=== PATIENT | female | born 1950 | race Caucasian/White ===

== ENCOUNTER 2021-05-13 12:50 | Outpatient (REF) | payer MEDICARE, OTHER, SELFPAY ==
--- NOTE | ~2021-05-13 | MR_ITS ---
EXAMINATION: MR LUMBAR SPINE WITHOUT CONTRAST CLINICAL INFORMATION: Chronic right-sided low back pain without sciatica. COMPARISON: Lumbar spine MRI 04/02/2011. TECHNIQUE: MRI of the lumbar spine was obtained using routine sequences without contrast. FINDINGS: The lumbar vertebral bodies maintain normal heights. There is mild retrolisthesis of L3 on L4 and grade 1 anterolisthesis of L5 on S1. Disc height loss is moderate at L3-L4 and L4-L5. Mild amount of endplate edema is seen at the L3-L4 level. The distal spinal cord appears normal. The conus medullaris terminates normally at the L1 level. The visualized paraspinal muscles and intra-abdominal and pelvic contents are within normal limits. SPINAL LEVELS: L1-L2: New small right subarticular extrusion superior migration. No definite traversing nerve root compression. No spinal canal stenosis. No neural foraminal stenosis. L2-L3: Disc bulging. No spinal canal stenosis. Minimal narrowing of the neural foramina. L3-L4: Disc bulging with central protrusion. Ligamentum flavum infolding mild facet arthropathy. Mild spinal canal stenosis with narrowing of the subarticular zones, new from prior. Mild bilateral neural foraminal stenosis. L4-L5: Disc bulging with ligamentum flavum infolding and severe facet arthropathy. Moderate spinal canal stenosis and bilateral subarticular stenosis with compression of the traversing L5 nerve roots. Right foraminal protrusion results in moderate compression of the exiting right L4 nerve root. Findings have progressed compared with prior. L5-S1: New grade 1 anterolisthesis with disc bulging and severe facet arthropathy resulting in bilateral subarticular stenosis. Abutment of the exiting right L5 nerve root. MR/MR lumbar spine wo con IMPRESSION: At L4-L5 there is moderate spinal canal stenosis with bilateral subarticular stenosis and compression of the traversing L5 nerve roots. Moderate compression of the exiting right L4 nerve root related to foraminal protrusion. Additional milder spondylotic changes are further detailed above and appear progressive compared with prior.
== END 2021-05-13 12:51 | disposition home or self-care (01) ==
LOC: HO.MRI 12:50
PROVIDERS: PCP Internal Medicine; Visit Provider Internal Medicine
DX: M54.50 Low back pain, unspecified (principal); G89.29 Other chronic pain
CPT/HCPCS: 72148

== ENCOUNTER 2021-07-23 13:00 | Outpatient (RCR) | payer MEDICARE, OTHER, SELFPAY | END 2021-08-28 14:37 | disposition home or self-care (01) | LOC: HO.PT 13:00 | PROVIDERS: PCP Internal Medicine; Visit Provider Nurse Practitioner Adult Health | DX: N81.11 Cystocele, midline (principal) | CPT/HCPCS: 97110; 97112; 97162; 97530 ==

== ENCOUNTER 2021-11-07 06:26 | Outpatient (REF) | payer MEDICARE, OTHER, SELFPAY ==
--- NOTE | ~2021-11-07 | XR_ITS ---
EXAMINATION: XR [id number] VIEW XR [id number] VIEWS CLINICAL INFORMATION: Pain in unspecified knee. Pain right knee. COMPARISON: None TECHNIQUE: Upright frontal view of both knees and lateral and patellofemoral views of the right knee were obtained. FINDINGS: Right knee: 3 views of the right knee shows asymmetric decreased joint space at the medial compartment consistent with mild osteoarthrosis. Enthesopathy is noted at the insertional site of the quadriceps tendon to the superior pole of the patella. Mild osteoarthrosis of the patellofemoral joint as well. No evidence of any joint effusion. Soft tissues are unremarkable. Left knee: Single frontal view of the left knee in upright position shows mild asymmetric decreased joint space at the medial compartment, consistent with mild osteoarthrosis. Subtle focal area of sclerosis is seen projecting over the distal shaft of the left femur, not optimally localized on this single frontal projection. XR/XR knee RT 2V IMPRESSION: 1. Mild right knee osteoarthrosis involving the medial and the patellofemoral compartments 2. Enthesopathy at the insertional site of the quadriceps tendon to the superior pole of the patella. 3. Mild osteoarthrosis of the medial compartment of the left knee. 4. Subtle focal area of sclerosis seen projecting over the distal shaft of the left femur, not optimally localized on this single frontal projection.
--- NOTE | ~2021-11-07 | XR_ITS ---
EXAMINATION: XR [id number] VIEW XR [id number] VIEWS CLINICAL INFORMATION: Pain in unspecified knee. Pain right knee. COMPARISON: None TECHNIQUE: Upright frontal view of both knees and lateral and patellofemoral views of the right knee were obtained. FINDINGS: Right knee: 3 views of the right knee shows asymmetric decreased joint space at the medial compartment consistent with mild osteoarthrosis. Enthesopathy is noted at the insertional site of the quadriceps tendon to the superior pole of the patella. Mild osteoarthrosis of the patellofemoral joint as well. No evidence of any joint effusion. Soft tissues are unremarkable. Left knee: Single frontal view of the left knee in upright position shows mild asymmetric decreased joint space at the medial compartment, consistent with mild osteoarthrosis. Subtle focal area of sclerosis is seen projecting over the distal shaft of the left femur, not optimally localized on this single frontal projection. XR/XR knee standing BI IMPRESSION: 1. Mild right knee osteoarthrosis involving the medial and the patellofemoral compartments 2. Enthesopathy at the insertional site of the quadriceps tendon to the superior pole of the patella. 3. Mild osteoarthrosis of the medial compartment of the left knee. 4. Subtle focal area of sclerosis seen projecting over the distal shaft of the left femur, not optimally localized on this single frontal projection.
== END 2021-11-07 06:27 | disposition home or self-care (01) ==
LOC: HO.HOSX 06:26
PROVIDERS: Visit Provider Physician Assistant
DX: M17.11 Unilateral primary osteoarthritis, right knee (principal); M25.562 Pain in left knee
CPT/HCPCS: 73560; 73565; 99202

== ENCOUNTER 2022-04-03 07:25 | Outpatient (REF) | payer MEDICARE, OTHER, SELFPAY ==
--- NOTE | ~2022-04-03 | CT_ITS ---
EXAMINATION: CT ABDOMEN AND PELVIS WITH CONTRAST CLINICAL INFORMATION: Right-sided abdominal pain COMPARISON: Previous pelvic ultrasound January [address] of the abdomen and pelvis September 1999 and TECHNIQUE: Multidetector volumetric images were obtained from the superior aspect of the liver through the pubic symphysis following administration 85 mL of Omnipaque 350 intravenous contrast. Sagittal and coronal reformatted images were obtained on the technologist's workstation. Oral contrast: Yes This CT examination was performed using dose optimization techniques as appropriate, variously including the following: *Automated exposure control *Adjustment of mA and/or kV according to patient size (this includes techniques or standardized protocols for targeted exams where dose is matched to indication/reason for exam; i.e. extremities or head) *Use of iterative reconstruction technique DLP: 241 mGy-cm FINDINGS: LUNG BASES: There is a 5 mm nodule in the lateral right lower lobe costophrenic sulcus that is stable. The lung bases are otherwise clear. LIVER, GALLBLADDER, AND BILIARY TREE: The liver is normal in size, shape, and attenuation. There is a 1.2 x 1.8 cm low-attenuation lesion in the peripheral medial segment of the left lobe of the liver axial image 21 series 3 and smaller 5 mm lesion axial image 17 series 3 suggestive of cysts. There are several other smaller liver lesions difficult characterize due to small size but may represent cysts as well, largest in the posterior segment of the right lobe axial image 20 series 3. No biliary duct dilatation. The gallbladder is unremarkable with no evidence of radiopaque gallstones, gallbladder wall thickening, or obvious pericholecystic inflammatory changes. PANCREAS: Unremarkable. SPLEEN: Unremarkable. ADRENAL GLANDS: Unremarkable. KIDNEYS AND URETERS: Small 8 mm low-attenuation lesion in the lower pole the right kidney probably representing a cyst. These are otherwise unremarkable. No imaging follow-up needed. BLADDER: Unremarkable. GASTROINTESTINAL TRACT: There is stool throughout the colon suggestive of constipation. Small and large bowel is otherwise normal. The appendix is not well visualized. No inflammatory changes in the right lower quadrant. ABDOMINAL WALL: No significant hernia is appreciated. LYMPH NODES: Normal. VASCULAR: Unremarkable. PELVIC VISCERA: Prominent pelvic vessels questionable for pelvic congestion. Uterus and adnexa are otherwise unremarkable. OSSEOUS STRUCTURES: Degenerative changes of the spine. CT/CT abdomen pelvis w IV con IMPRESSION: Constipation. Liver and right renal cysts. Fleischner guidelines were followed.
[2022-04-03] MEDS: iohexoL 350 MG/ML 100 ML INFUS..BTL IV (10:44)
[2022-04-04 08:35] LABS: Creatinine POC 0.6 mg/dL (0.5-1.4); GFR POC > 60
== END 2022-04-03 07:26 | disposition home or self-care (01) ==
LOC: HO.CT 07:25
PROVIDERS: Visit Provider Internal Medicine Gastroenterology
DX: R10.33 Periumbilical pain (principal)
CPT/HCPCS: 74177; 82565; Q9967

== ENCOUNTER 2023-08-21 10:14 | Outpatient (REF) | payer MEDICARE, OTHER, SELFPAY ==
--- NOTE | ~2023-08-21 | MR_ITS ---
EXAMINATION: MR LUMBAR SPINE WITHOUT CONTRAST CLINICAL INFORMATION: Spinal stenosis COMPARISON: MRI lumbar spine on 05/13/2021 TECHNIQUE: MRI of the lumbar spine was obtained using routine sequences without contrast. FINDINGS: The visualized lumbar vertebrae are intact. No focal bone lesion with abnormal signal can be seen. Evaluation of the intervertebral discs show: T12/L1: Intervertebral disc height is normal, with normal T2 signal. No focal disc herniation is seen. Bilateral T12/L1 neuroforamina are patent. Bilateral apophyseal joints are intact with normal alignment. L-1/L-2: Intervertebral disc height is normal, with normal T2 signal. No focal disc herniation is seen. Bilateral L1-L2 neuroforamina are patent. Bilateral apophyseal joints are intact with normal alignment. L2/L3: Intervertebral disc height is moderately decreased, with moderate loss of T2 signal. Mild broad-based disc bulge is seen. Bilateral L2-L3 neuroforamina are patent. Bilateral apophyseal joints are intact with normal alignment. L3/L4: Intervertebral disc height is markedly decreased, with mild loss of T2 signal. Mild posterior and bilateral foraminal disc protrusion is seen. Bilateral L3-L4 neuroforamina are mildly stenosed, unchanged. Bandlike T2 hyperintensity is seen at L3-L4 vertebral endplates. There is persistent mild spinal stenosis due to impingement by hypertrophic ligamentum flavum. Bilateral apophyseal joints are intact with normal alignment. Bilateral apophyseal joints show loss of joint space, sclerosis, facet hypertrophy and osteophytosis. L4/L5: There is anterior L4 on L5 displacement by 0.3 cm. No pars interarticulares bony defect could be seen with Intervertebral disc height is markedly decreased, with mild loss of T2 signal. Mild posterior and bilateral foraminal disc protrusion is seen. There is unchanged moderate asymmetric right L4-L5 neuroforaminal stenosis due to impingement by foraminal disc protrusion and apophyseal osteophyte. There is persistent moderate spinal stenosis due to impingement by hypertrophic ligamentum flavum. Bilateral apophyseal joints are intact with normal alignment. Bilateral apophyseal joints show loss of joint space, sclerosis, facet hypertrophy and osteophytosis. L5/S1: Intervertebral disc height is normal, with mild loss of T2 signal. Mild broad-based disc bulge is seen. Bilateral L5-S1 neuroforamina are patent. Bilateral apophyseal joints are intact with normal alignment. Bilateral apophyseal joints show loss of joint space, sclerosis, facet hypertrophy and osteophytosis. Conus medullaris is seen normally at L1 level. MR/MR lumbar spine wo con IMPRESSION: 1. Unchanged moderate L4-L5 and mild L3-L4 spinal stenosis due to impingement by hypertrophic ligamentum flavum. 2. Unchanged moderate asymmetric right L4-L5 neuroforaminal stenosis due to impingement by foraminal disc protrusion and apophyseal osteophyte. 3. Unchanged mild L3-L4 bilateral neuroforaminal stenosis due to impingement by foraminal disc protrusion. 4. Unchanged grade 1 L4-L5 spondylolisthesis without spondylolysis. 5. Interval increase in L3-L4 Modic type I degenerative vertebral endplate changes. 6. Unchanged bilateral L3-L4 to L5-S1 apophyseal joint osteoarthritis.
== END 2023-08-21 10:15 | disposition home or self-care (01) ==
LOC: HO.MRI 10:14
PROVIDERS: PCP Internal Medicine; Visit Provider Internal Medicine
DX: M48.061 Spinal stenosis, lumbar region without neurogenic claudication (principal)
CPT/HCPCS: 72148

== ENCOUNTER 2024-01-15 07:49 | Outpatient (REF) | payer MEDICARE, OTHER, SELFPAY ==
--- NOTE | ~2024-01-15 | US_ITS ---
EXAMINATION: US ABDOMEN COMPLETE CLINICAL INFORMATION: Abdominal pain. COMPARISON: CT scan of abdomen and pelvis on 04/03/2022 TECHNIQUE: Real-time imaging of the abdominal viscera. FINDINGS: PANCREAS: Normal. ABDOMINAL AORTA: The proximal, mid, and distal segments are normal in caliber. INFERIOR VENA CAVA: Visualized portions are normal. LIVER: The liver is normal in size. The liver contour is normal. Parenchymal echogenicity is normal. A simple cyst is seen in anterior subcapsular left hepatic lobe segment 4B measuring 2.1 x 1.4 x 2.3 cm (previously 1.2 x 1.[address] scan). There is no intrahepatic biliary duct dilatation seen. GALLBLADDER: Normal. The gallbladder is physiologically distended without evidence of stones, sludge, polyps, wall thickening or pericholecystic fluid. COMMON BILE DUCT: Normal in caliber measuring 0.31 cm in diameter. RIGHT KIDNEY: Normal. No hydronephrosis. No renal calculi or focal parenchymal lesions. The kidney measures 9.5 cm in maximum dimension. LEFT KIDNEY: Normal. There is persistent mild prominence of left renal pelvis. No hydronephrosis. No renal calculi or focal parenchymal lesions. The kidney measures 10.0 cm in maximum dimension. SPLEEN: Normal. The spleen measures 8.6 cm in maximum dimension. FREE FLUID: None. US/US abdomen complete IMPRESSION: 1. Stable Simple cyst in anterior subcapsular left hepatic lobe segment 4B. 2. Persistent mild prominence of left renal pelvis. 3. Otherwise unremarkable examination. Electronically signed by: Ivan Clark MD 02/29/2024 10:33 AM EDT
== END 2024-01-15 07:50 | disposition home or self-care (01) ==
LOC: HO.US 07:49
PROVIDERS: PCP Internal Medicine; Visit Provider Internal Medicine Gastroenterology
DX: R10.84 Generalized abdominal pain (principal)
CPT/HCPCS: 76700

== ENCOUNTER 2024-03-04 07:46 | Day surgery (SDC) | payer MEDICARE, OTHER, SELFPAY ==
[2024-03-02 16:33] VITALS: BMI 18.8
[2024-03-04 07:59] VITALS: BP 147/88; PULSE 82; RESP 20; TEMP 36.3; O2SAT 99; BMI 18.5
--- NOTE | 2024-03-04 08:15 | P.CONAN_ITS ---
Documented by User: Leanna Adair NP 03/03/24 09:34 HPI - Anesthesia Eval Consult details Narrative: 73yo F for Upper Endoscopy and Colonoscopy PMFSH Active Problems Active Problems: All Active Problems Osteoarthritis of right knee (Acute) Past Medical History Medical History (Updated 03/02/24 @ 16:33 by Esperanza Carrion, MICHAEL) History of trigeminal neuralgia Arthritis Pinched nerve Surgical History Surgical History (Updated 03/02/24 @ 16:33 by Esperanza Carrion RN) History of esophagogastroduodenoscopy (EGD) Hx of colonoscopy H/O section Social History Social History (Updated 11/07/21 @ 11:31 by DELORES Carbone) Patient Tobacco Use Status: Never used Tobacco Have you been hit, kicked, punched, or otherwise hurt by someone within the past year? If so, by whom?: No Are you DNR?: No Advance Directives: No Advance Directives Information Provided: Yes Current occupational status: retired Current occupation: rt hand Meds Allergies Allergy/AdvReac Type Severity Reaction Status Date / Time erythromycin base Allergy Intermediate STOMACH Verified 03/04/24 08:13 [Erythromycin Base] UPSET nitrofurantoin Allergy Intermediate RASH Verified 03/04/24 08:13 [From MACRODANTIN] sulfamethoxazole Allergy Intermediate HIVES Verified 03/04/24 08:13 [From Bactrim] trimethoprim [From Bactrim] Allergy Intermediate HIVES Verified 03/04/24 08:13 ENVIRONMENTAL Allergy Intermediate ITCHY Uncoded 11/07/21 11:37 EYES,ETC. Home Medications ?Medication ?Instructions ?Recorded ?Confirmed ?Last Taken ?Type amoxicillin 875 mg-potassium 1 tab PO BID 11/07/21 Unknown History clavulanate 125 mg tablet aloe vera cap PO 03/02/24 03/02/24 Unknown History doxycycline hyclate 20 mg tablet 20 mg PO QWEEK 03/02/24 03/02/24 Unknown History estradiol 1 mg tablet (Estrace) 1 mg PO 03/02/24 Unknown History fexofenadine 180 mg tablet 180 mg PO DAILY 03/02/24 03/02/24 Unknown History magnesium PRN Cramps 03/02/24 03/02/24 Unknown History valacyclovir 500 mg tablet 500 mg PO BID PRN Cold Sores 03/02/24 03/02/24 Unknown History vit C 250 mg-vit E 90 mg-zinc 40 PO 03/02/24 03/02/24 Unknown History mg-copper 1 [id number] capsule (PreserVision AREDS-2) Exam Height,Weight and Vital Signs: Height 5 ft 3.5 in Weight 48.988 kg Assessment and Plan Assessment Anesthesia Assessment: Chart Reviewed Documented by User: Dominique Smith DO 03/04/24 08:17 [facility] Past Medical History Medical History (Updated 03/02/24 @ 16:33 by Esperanza Carrion RN) History of trigeminal neuralgia Arthritis Pinched nerve Family History Family history of problems with anesthesia: No Surgical History Surgical History (Updated 03/02/24 @ 16:33 by Esperanza Carrion RN) History of esophagogastroduodenoscopy (EGD) Hx of colonoscopy H/O section History of Problems with Anesthesia: No Social History Social History (Updated 11/07/21 @ 11:31 by DELORES Carbone) Patient Tobacco Use Status: Never used Tobacco Have you been hit, kicked, punched, or otherwise hurt by someone within the past year? If so, by whom?: No Are you DNR?: No Advance Directives: No Advance Directives Information Provided: Yes Current occupational status: retired Current occupation: rt hand Meds Allergies Allergy/AdvReac Type Severity Reaction Status Date / Time erythromycin base Allergy Intermediate STOMACH Verified 03/04/24 08:13 [Erythromycin Base] UPSET nitrofurantoin Allergy Intermediate RASH Verified 03/04/24 08:13 [From MACRODANTIN] sulfamethoxazole Allergy Intermediate HIVES Verified 03/04/24 08:13 [From Bactrim] trimethoprim [From Bactrim] Allergy Intermediate HIVES Verified 03/04/24 08:13 ENVIRONMENTAL Allergy Intermediate ITCHY Uncoded 11/07/21 11:37 EYES,ETC. Home Medications ?Medication ?Instructions ?Recorded ?Confirmed ?Last Taken ?Type amoxicillin 875 mg-potassium 1 tab PO BID 11/07/21 Unknown History clavulanate 125 mg tablet aloe vera cap PO 03/02/24 03/02/24 Unknown History doxycycline hyclate 20 mg tablet 20 mg PO QWEEK 03/02/24 03/02/24 Unknown History estradiol 1 mg tablet (Estrace) 1 mg PO 03/02/24 Unknown History fexofenadine 180 mg tablet 180 mg PO DAILY 03/02/24 03/02/24 Unknown History magnesium PRN Cramps 03/02/24 03/02/24 Unknown History valacyclovir 500 mg tablet 500 mg PO BID PRN Cold Sores 03/02/24 03/02/24 Unknown History vit C 250 mg-vit E 90 mg-zinc 40 PO 03/02/24 03/02/24 Unknown History mg-copper 1 [id number] capsule (PreserVision AREDS-2) Exam Exam Date and Time: 03/04/24 0815 Height,Weight and Vital Signs: Height 5 ft 3.5 in Weight 48.988 kg Vital Signs Temperature 97.4 F 03/04/24 07:59 Pulse Rate 82 03/04/24 07:59 Respiratory Rate 20 03/04/24 07:59 Blood Pressure 147/88 H 03/04/24 07:59 Pulse Oximetry 99 03/04/24 07:59 Oxygen Delivery Method Room Air 03/04/24 07:59 Temperature 97.4 F 03/04/24 07:59 Pulse Rate 82 03/04/24 07:59 Respiratory Rate 20 03/04/24 07:59 Blood Pressure 147/88 H 03/04/24 07:59 Pulse Oximetry 99 03/04/24 07:59 Oxygen Delivery Method Room Air 03/04/24 07:59 Airway Mallampati Class: I TM Dist: >3cm Neck ROM: Full Loose/Missing/Broken Teeth: No (patient denies any loose or broken teeth) Heart: S1S2 Lungs: CTAB Assessment and Plan Assessment Anesthesia Assessment: Anesthesia Plan Discussed and Chart Reviewed Final Anesthetic Review Family History of Problems with Anesthesia: No History of Problems with Anesthesia: No NPO: Yes ASA Class: I Final Preanesthetic Review: No Changes in Pt Med Stat, Meds/Allgs Chart Reviewed, Consent Obtained/Reviewed and Anes Risks/Benef Reviewed Patient Risk: Low Procedure Risk: Low Anesthetic Plan Anesthetic Plan: MAC: and Agree w/ Assess. and Plan Disposition: Standard PACU
[2024-03-04] MEDS: Lactated Ringers 1,000 ML 100 ML IVCONT (08:19)
--- NOTE | 2024-03-04 08:21 | MHC.SHP ---
Pre-Procedural Eval Section A - 24 Hr Update-Section A only Date of Service: 03/04/24 Section B - Complete if H&P > 30 days Chief Complaint: Other specified symptoms and signs involving the Details of Present Illness: see H&P no changes Relevant Family History (Specify if Yes): No Relevant Social History: None Present Medications: see Short Stay Collaborative assessment Medical History: No relevant PMH Allergies: Allergies Allergy/AdvReac Type Severity Reaction Status Date / Time erythromycin base Allergy Intermediate STOMACH Verified 03/04/24 08:13 [Erythromycin Base] UPSET nitrofurantoin Allergy Intermediate RASH Verified 03/04/24 08:13 [From MACRODANTIN] sulfamethoxazole Allergy Intermediate HIVES Verified 03/04/24 08:13 [From Bactrim] trimethoprim [From Bactrim] Allergy Intermediate HIVES Verified 03/04/24 08:13 ENVIRONMENTAL Allergy Intermediate ITCHY Uncoded 11/07/21 11:37 EYES,ETC. Review of Systems Sugical H&P ROS: Negative: Constitution, Cardiovascular, Respiratory, Neurological, Psychiatric, Hem-Onc, Allergic/Immunologic, Gastrointestinal, Genitourinary, Musculoskeletal, Integumentary, Endocrine and Eyes/Ears/Nose/Throat Exam Surgical H&P Exam: Normal: HEENT, Normal: Heart, Normal: Lungs, Normal: Extremities, Normal: Abdomen, Normal: Skin and Normal: Neurological Plan Diagnosis/Plan: Unchanged I have reviewed the history and physical and performed a pertinent physical examination on my patient. No changes have occurred unless specified. Time Spent With Patient Time: Total time managing care of this patient today ____ minutes.
[2024-03-04 09:08] VITALS: BP 90/40; PULSE 81; RESP 16; TEMP 36.6; O2SAT 94
[2024-03-04 09:13] VITALS: BP 104/72; PULSE 89; RESP 15; O2SAT 98
[2024-03-04 09:18] VITALS: BP 112/77; PULSE 80; RESP 15; O2SAT 98
[2024-03-04 09:23] VITALS: BP 112/68; PULSE 75; RESP 14; TEMP 36.6; O2SAT 98
--- NOTE | 2024-03-04 09:30 | OP_ITS ---
DATE OF SERVICE: 03/04/2024 SURGEON: Edwin Garza MD INDICATIONS: 1. Change in bowel movements. 2. Gastroesophageal reflux disease. 3. Abdominal pain. PREOPERATIVE DIAGNOSIS: POSTOPERATIVE DIAGNOSIS: PROCEDURE PERFORMED: 1. Upper endoscopy with biopsy. 2. Colonoscopy to the terminal ileum with biopsy. ESTIMATED BLOOD LOSS: COMPLICATIONS: ANESTHESIA: Monitored anesthesia care. ASSISTANTS: SPECIMENS: DESCRIPTION OF PROCEDURE: A history and physical was performed. The risks and benefits of the procedure were explained to the patient and informed consent was obtained. The patient was placed in the left lateral decubitus position. The Olympus video gastroscope was introduced into the esophagus, stomach, and duodenum. Examination was performed and the scope was removed. She tolerated the procedure well and was repositioned for colonoscopy. A digital rectal exam was performed and was found to be normal. The Olympus pediatric video colonoscope was introduced into the rectum and advanced to the cecum. The cecum was identified by transillumination, palpation, and identification of ileocecal valve. Examination was performed and the scope was removed. She tolerated both procedures well and was returned to recovery area in stable condition. FINDINGS: Upper endoscopy, esophagus: The esophagus showed some white patches suggestive of possible underlying candidiasis. Biopsies were obtained from the EG junction, which was irregular. 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 No stricture was identified at the upper or lower esophageal sphincter. Stomach: The stomach showed some polyps consistent with fundic gland polyps that were benign. Biopsies were obtained from the antrum. There were linear streaks of erythema consistent with possible gastritis. Biopsies were obtained to evaluate for H pylori. Duodenum: The bulb and 2nd portion were normal. Colonoscopy: The terminal ileum was examined and appeared normal. The visualized colonic mucosa was normal. The quality of the prep was good. A single polyp in the cecum measuring less than 5 mm was removed with the biopsy forceps. Random sigmoid biopsies were obtained because of the patient's symptoms of diarrhea. Retroflexed examination showed some small internal hemorrhoids. IMPRESSION: 1. Gastritis. 2. Gastroesophageal reflux disease. 3. Colon polyp. RECOMMENDATION: Follow up the biopsy results. MD LAZARO Ruiz/JULIETA / [id number]
[2024-03-04 09:38] VITALS: BP 118/69; PULSE 76; RESP 16; TEMP 36.6; O2SAT 98
== END 2024-03-04 10:10 | disposition home or self-care (01) ==
PROVIDERS: PCP Internal Medicine; Visit Provider Internal Medicine Gastroenterology
PROC: (CPT 43239; principal; 2024-03-04 09:20)
DX: K31.7 Polyp of stomach and duodenum (principal); K22.89 Other specified disease of esophagus; K29.00 Acute gastritis without bleeding; K22.70 Barrett's esophagus without dysplasia; K21.00 Gastro-esophageal reflux disease with esophagitis, without bleeding; D12.0 Benign neoplasm of cecum; K64.8 Other hemorrhoids; R19.4 Change in bowel habit
CPT/HCPCS: 43239; 45380; 88305; 88342; J2250; J2704

== ENCOUNTER 2025-03-28 12:01 | Outpatient (REF) | payer MEDICARE, OTHER, SELFPAY ==
[2025-03-28 12:52] LABS: Hematocrit 41.7 % (37.0-47.0); Hemoglobin 13.5 g/dl (12.0-16.0); Mean Corpuscular HGB Conc 32.4 g/dl (31.0-35.0); Mean Corpuscular Hemoglobin 30.0 pg (27.0-33.0); Mean Corpuscular Volume 92.7 fL (80.0-98.0); NRBC Abs Auto 0.000 X10*3/uL (0.0-0.012); NRBC Pct Auto 0.0 /100WBC (0.0-0.2); Platelet Count 215 X10*3/uL (160-400); Red Blood Count 4.50 X10*6/uL (4.20-5.50); White Blood Count 4.9 X10*3/uL (4.8-10.8)
[2025-03-28 13:37] LABS: Alanine Aminotransferase 36 U/L (0-31); Albumin Level 4.6 g/dL (3.5-5.0); Alkaline Phosphatase 93 U/L (39-117); Aspartate Amino Transferase 41 U/L (5-31); Lipase 38 U/L (8-78); Total Protein 7.2 g/dL (6.5-8.0)
--- OUTSIDE RECORDS SUMMARY | 2025-03-28 15:32 | XMS_ITS | Encounter Summary ---
Author Organization [facility] Address [address] [place] [address] [place] [address] Phone Care Team Providers Care District Agent Name Role Phone Vaughn Dukes MD Primary Care Provider [phone] Vaughn Dukes MD Unavailable [phone] Thomas Saunders MD Unavailable [phone] Charlene Morris MD Unavailable [phone] Dustin Perla MD Unavailable [phone] Christiane Michele HEEL SPRAYER Unavailable +[phone] Ambar Sosa HEEL SPRAYER Unavailable [phone] Grupo Lundberg MD Unavailable [phone] Vaughn Dukes MD Unavailable [phone] Vaughn Dukes MD Primary Care Provider [phone] Jey Doll MD Unavailable Encounter Details Date Type Department Care Team (Late st Contact Info) Description 05/24/2019 Procedure Pass [facility] Periop [address] [place] [address] Social History Tobacco Use Types Packs/Day Years Used Date Smoking Tobacco: Former Cigarettes 0.3 14 1 964 - 1977 Smokeless Tobacco: Never Alcohol Use Standard Drinks/Week Comments Yes 0 (1 standard drink = 0.6 oz pur e alcohol) 2 x year Comments Unknown Sex and Gender Information Value Date Recorded Sex Assigned at Female 11/05/2020 9:53 AM EDT Legal Sex Female 2:08 PM EDT Gender Identity Female 12/17/2021 8:06 AM EDT Sexual Orientation Straight 12/17/2021 8: 06 AM EDT documented as of this encounter Plan of Treatment Upcoming Encounters Date Type Department Care Team (Late st Contact Info) Description 05/26/2025 3:00 PM EST Office Visit [facility] Internal Medicine [address] [place] [address] Vaughn Dukes MD [address] [place] [address] [email or web address] documented as of this encounter Visit Diagnoses Not on filedocumented in this encounter Care Teams District Agent Relationship Specialty Start Date End Date Vaughn Dukes MD [address] [place] [address] PCP - General 08/10/15 08/01/20 Vaughn Dukes MD [address] [place] [address] PCP - General Internal Medicine 08/02/20 Vaughn Dukes MD [address] [place] [address] Historical LMR Provider 03/29/17 09/17/22 Thomas Saunders MD [address] [place] [address] [email or web address] Historical LMR Provider 03/29/17 06/15/21 Charlene Morris MD [address] [place] [address] Historical LMR Provider 03/29/17 2 Dustin Perla MD [address] [facility], [address] [place] [address] Historical LMR Provider 03/29/17 06/15/21 Christiane Michele, HEEL SPRAYER [address] [place] [address] [address] [place] [address] Historical LMR Provider 03/29/17 2 Ambar Sosa NP [address] [place] [address] Historical LMR Provider 03/29/17 09/17/22 Grupo Lundberg MD [address] [place] [address] Historical LMR Provider 03/29/17 Vaughn Dukes MD [address] [place] [address] Insurance Assigned Provider 09/12/23 Jey Doll MD [address] [address] Ophthalmology 09/18/22 documented as of this encounter Additional Source Comments The information contained in this document represents components of the legal health record. It is not the complete legal health record.[facility]
--- OUTSIDE RECORDS SUMMARY | 2025-03-28 15:34 | XMS_ITS | Encounter Summary ---
Author Organization [facility] Address [address] [place] [address] [place] [address] Phone Care Team Providers Care Surgical Technology Instructor Name Role Phone Vaughn Dukes MD Primary Care Provider [phone] Vaughn Dukes MD Unavailable [phone] Thomas Saunders MD Unavailable [phone] Charlene Morris MD Unavailable [phone] Dustin Perla MD Unavailable [phone] Christiane Michele CARPENTER Unavailable Ambar Sosa CARPENTER Unavailable [phone] Grupo Lundberg MD Unavailable [phone] Vaughn Dukes MD Unavailable [phone] Vaughn Dukes MD Primary Care Provider [phone] Jey Doll MD Unavailable Encounter Details Date Type Department Care Team (Late st Contact Info) Description 12/06/2019 Documentation [facility] Department of Neurosurgery [address] [place] [address] May Figueroa RN [address] [place] [id number] [email or web address] Social History Tobacco Use Types Packs/Day Years Used Date Smoking Tobacco: Former Cigarettes 0.3 14 1 975 - 1988 Smokeless Tobacco: Never Alcohol Use Standard Drinks/Week Comments Yes 0 (1 standard drink = 0.6 oz pur e alcohol) 1-2 x month, gin and tonic Comments No Sex and Gender Information Value Date Recorded Sex Assigned at Female 11/05/2020 9:53 AM EDT Legal Sex Female 2:08 PM EDT Gender Identity Female 12/17/2021 8:06 AM EDT Sexual Orientation Straight 12/17/2021 8: 06 AM EDT documented as of this encounter Plan of Treatment Upcoming Encounters Date Type Department Care Team (Late st Contact Info) Description 05/26/2025 3:00 PM EST Office Visit [facility] Internal Medicine [address] [place] [address] Vaughn Dukes MD 40 [place] [address] [email or web address] documented as of this encounter Visit Diagnoses Not on filedocumented in this encounter Additional Health Concerns Assessment Noted Time PHQ-2 Depression Total Score: 5 11/29/19 20 2:10 PM EDT documented as of this encounter Care Teams Surgical Technology Instructor Relationship Specialty Start Date End Date Vaughn Dukes MD [address] [place] [address] PCP - General 08/10/15 08/01/20 Vaughn Dukes MD [address] [place] [address] PCP - General Internal Medicine 08/02/20 Vaughn Dukes MD [address] [place] [address] Historical LMR Provider 03/29/17 09/17/22 Thomas Saunders MD 22 [place] [address] [email or web address] Historical LMR Provider 03/29/17 06/15/21 Charlene Morris MD [address] [place] [address] Historical LMR Provider 03/29/17 2 Dustin Perla MD [address] [address] [email or web address] Historical LMR Provider 03/29/17 06/15/21 Christiane Michele NP [address] [place] [address] Historical LMR Provider 03/29/17 2 Ambar Sosa NP [address] [place] [address] Historical LMR Provider 03/29/17 09/17/22 Grupo Lundberg MD [address] [place] [address] Historical LMR Provider 03/29/17 Vaughn Dukes MD [address] [place] [address] Insurance Assigned Provider 09/12/23 Jey Doll MD [facility] [address] [address] Ophthalmology 09/18/22 documented as of this encounter Additional Source Comments The information contained in this document represents components of the legal health record. It is not the complete legal health record.[facility]
--- OUTSIDE RECORDS SUMMARY | 2025-03-28 15:34 | XMS_ITS | Encounter Summary ---
Author Organization [facility] Address [address] [place] [address] [place] [address] Phone Care Team Providers Care Air Transportation Provider Name Role Phone Vaughn Dukes MD Primary Care Provider [phone] Vaughn Dukes MD Unavailable [phone] Thomas Saunders MD Unavailable [phone] Charlene Morris MD Unavailable [phone] Dustin Perla MD Unavailable [phone] Christiane Michele REAL ESTATE ASSISTANT Unavailable +[phone] Ambar Sosa REAL ESTATE ASSISTANT Unavailable [phone] Grupo Lundberg MD Unavailable [phone] Vaughn Dukes MD Unavailable [phone] Vaughn Dukes MD Primary Care Provider [phone] Jey Doll MD Unavailable Encounter Details Date Type Department Care Team (Late st Contact Info) Description 03/30/2019 Procedure Pass [facility] [address] [place] [address] Social History Tobacco Use Types Packs/Day Years [...] Description 05/26/2025 3:00 PM EST Office Visit [facility] Internal Medicine [address] [place] [address] Vaughn Dukes MD [address] [place] [address] [email or web address] documented as of this encounter Visit Diagnoses Not on filedocumented in this encounter Care Teams Air Transportation Provider Relationship Specialty Start Date End Date Vaughn Dukes MD [address] [place] [address] PCP - General 08/10/15 08/01/20 Vaughn Dukes MD [address] [place] [address] PCP - General Internal Medicine 08/02/20 Vaughn Dukes MD [address] [place] [address] Historical LMR Provider 03/29/17 09/17/22 Thomas Saunders MD [address] [place] [address] [email or web address] Historical LMR Provider 03/29/17 06/15/21 Charlene Morris MD [address] [place] [address] Historical LMR Provider 03/29/17 2 Dustin Perla MD 22 [facility], [address] [place] [address] Historical LMR Provider 03/29/17 06/15/21 Christiane Michele, FAVIO [address] [place] [address] 104 [place] [address] Historical LMR Provider 03/29/17 2 Ambar Sosa NP [address] [place] [address] Historical LMR Provider 03/29/17 09/17/22 Grupo Lundberg MD [address] [place] [address] Historical LMR Provider 03/29/17 Vaughn Dukes MD [address] [place] [address] Insurance Assigned Provider 09/12/23 Jey Doll MD [address] [address] Ophthalmology 09/18/22 documented as of this encounter Additional Source Comments The information contained in this document represents components of the legal health record. It is not the complete legal health record.[facility]
--- OUTSIDE RECORDS SUMMARY | 2025-03-28 15:34 | XMS_ITS | Encounter Summary ---
Author Organization [facility] Address [address] [place] [address] Phone Care Team Providers Care Caser In Name Role Phone Vaughn Dukes MD Primary Care Provider [phone] Vaughn Dukes MD Unavailable [phone] Thomas Saunders MD Unavailable [phone] Charlene Morris MD Unavailable [phone] Dustin Perla MD Unavailable Christiane Michele CONTACT PERSON Unavailable +[phone] Ambar Sosa CONTACT PERSON Unavailable [phone] Grupo Lundberg MD Unavailable [phone] Vaughn Dukes MD Unavailable [phone] Vaughn Dukes MD Primary Care Provider [phone] Jey Doll MD Unavailable Reason for Referral * MRI/CAT Scan - Closed Specialty Diagnoses / Procedures Referred By Contac t Referred To Contact Procedures MRI Brain Outside (No Interpretation) System, Provider Not In, [place] [address] Referral ID Status Reason Start Date Expiration Date Visits Re quested Visits Authorized [id number] Closed 08/02/2018 08/02/2019 1 1 * MRI/CAT Scan - Closed Specialty Diagnoses / Procedures Referred By Contac t Referred To Contact Procedures MRI Brain Outside (No Interpretation) System, Provider Not In, PhD [address] [address] Referral ID Status Reason Start Date Expiration Date Visits Re quested Visits Authorized [id number] Closed 08/02/2018 08/02/2019 1 1 Encounter Details Date Type Department Care Team ([facility] Contact Info) Description 08/02/2018 Ancillary Orders [facility],Outside Imaging [address] [place] [address] System, Provider Not In, PhD [address] [address] Social History Tobacco Use Types Packs/Day Years Used Date Smoking Tobacco: Former Cigarettes 0.3 14 1 964 - 4398 Smokeless Tobacco: Never Comments:quit 40 years ago Alcohol Use Standard Drinks/Week Comments No 0 (1 standard drink = 0.6 oz pur e alcohol) Comments Unknown Sex and Gender Information Value Date Recorded Sex Assigned at Female 11/05/2020 9:53 AM EDT Legal Sex Female 2:08 PM EDT Gender Identity Female 12/17/2021 8:06 AM EDT Sexual Orientation Straight 12/17/2021 8: 06 AM EDT documented as of this encounter Plan of Treatment Upcoming Encounters Date Type Department Care Team (Late Contact Info) Description 05/26/2025 3:00 PM EST Office Visit [facility] Internal Medicine [address] [place] [address] Vaughn Dukes MD [address] [place] [address] [email or web address] documented as of this encounter Results * MRI Brain Outside (No Interpretation) (03/27/2017 12:00 AM EDT) Narrative SYSTEMGENERATED, DOCUMENTATION - 08/02/2018 2:11 PM EST This study is for PACS storage only and not for interpretation. us Provider Not In System PhD IMG OUTSIDE IMAGING W /OUT INTERPRETATION Final Result * MRI Brain Outside (No Interpretation) (11/21/2015 12:00 AM EDT) Narrative SYSTEMGENERATED, DOCUMENTATION - 08/02/2018 2:08 PM EST This study is for PACS storage only and not for interpretation. us Provider Not In System PhD IMG OUTSIDE IMAGING W /OUT INTERPRETATION Final Result documented in this encounter Visit Diagnoses Not on filedocumented in this encounter Care Teams Caser In Relationship Specialty Start Date End Date Vaughn Dukes MD [address] [place] [address] [email or web address] PCP - General 08/10/15 08/01/20 Vaughn Dukes MD [address] [place] [address] PCP - General Internal Medicine 08/02/20 Vaughn Dukes MD [address] [place] [address] [email or web address] Historical LMR Provider 03/29/17 09/17/22 Thomas Saunders MD [address] [place] [address] [email or web address] Historical LMR Provider 03/29/17 06/15/21 Charlene Morris MD [address] [place] [address] Historical LMR Provider 03/29/17 2 Dustin Perla MD [address] [place] [address], [address] [address] Historical LMR Provider 03/29/17 06/15/21 Christiane Michele NP [address] [place] [address] Historical LMR Provider 03/29/17 2 Ambar Sosa NP [address] [place] [address] [email or web address] Historical LMR Provider 03/29/17 09/17/22 Grupo Lundberg MD [address] [place] [address] Historical LMR Provider 03/29/17 Vaughn Dukes MD [address] [place] [address] [email or web address] Insurance Assigned Provider 09/12/23 Jey Doll MD [facility] [address] [address] Ophthalmology 09/18/22 documented as of this encounter Additional Source Comments The information contained in this document represents components of the legal health record. It is not the complete legal health record.[facility]
--- OUTSIDE RECORDS SUMMARY | 2025-03-28 15:34 | XMS_ITS | Encounter Summary ---
Author Organization [facility] Address [address] [place] [address] [place] [address] Phone Care Team Providers Care Business Banking Officer Name Role Phone Vaughn Dukes MD Primary Care Provider [phone] Vaughn Dukes MD Unavailable [phone] Thomas Saunders MD Unavailable +[phone] Charlene Morris MD Unavailable [phone] Dustin Perla MD Unavailable [phone] Christiane Michele RHEOLOGIST Unavailable [phone] Ambar Sosa RHEOLOGIST Unavailable [phone] Grupo Lundberg MD Unavailable [phone] Vaughn Dukes MD Unavailable +[phone] Vaughn Dukes MD Primary Care Provider [phone] Jey Doll MD Unavailable Encounter Details Date Type Department Care Team (Late st Contact Info) Description 06/22/[address] [facility] Periop [address] [place] [address] Social History Tobacco Use Types Packs/Day Years Used Date Smoking Tobacco: Former Cigarettes 0.3 14 1 975 - 1988 Smokeless Tobacco: Never Alcohol Use Standard Drinks/Week Comments Yes 2 (1 standard drink = 0.6 oz pur e alcohol) Comments No Sex and Gender Information Value [...] Description 05/26/2025 3:00 PM EST Office Visit [facility] Internal Medicine [address] [place] [address] Vaughn Dukes MD [address] [place] [address] [email or web address] documented as of this encounter Visit Diagnoses Not on filedocumented in this encounter Care Teams Business Banking Officer Relationship Specialty Start Date End Date Vaughn Dukes MD [address] [place] [address] [email or web address] PCP - General 08/10/15 08/01/20 Vaughn Dukes MD [address] [place] [address] PCP - General Internal Medicine 08/02/20 Vaughn Dukes MD [address] [place] [address] [email or web address] Historical LMR Provider 03/29/17 09/17/22 Thomas Saunders MD [address] [place] [address] [email or web address] Historical LMR Provider 03/29/17 06/15/21 Charlene Morris MD [address] [place] [address] Historical LMR Provider 03/29/17 2 Dustin Perla MD 22 [facility], [address] [place] [address] Historical LMR Provider 03/29/17 06/15/21 Christiane Michele, RHEOLOGIST [address] [place] [address] 104 [place] [address] Historical LMR Provider 03/29/17 2 Ambar Sosa NP [address] [place] [address] Historical LMR Provider 03/29/17 09/17/22 Grupo Lundberg MD [address] [place] [address] Historical LMR Provider 03/29/17 Vaughn Dukes MD [address] [place] [address] Insurance Assigned Provider 09/12/23 Jey Doll MD [address] [address] Ophthalmology 09/18/22 documented as of this encounter Additional Source Comments The information contained in this document represents components of the legal health record. It is not the complete legal health record.[facility]
--- OUTSIDE RECORDS SUMMARY | 2025-03-28 15:35 | XMS_ITS | Encounter Summary ---
Author Organization [facility] Address [address] [place] [address] [place] [address] Phone Care Team Providers Care Electrical Assistant Name Role Phone Vaughn Dukes MD Primary Care Provider [phone] Vaughn Dukes MD Unavailable +[phone] Thomas Saunders MD Unavailable +[phone] Charlene Morris MD Unavailable +[phone] Dustin Perla MD Unavailable +[phone] Christiane Michele SAND FILLER Unavailable +[phone] Ambar Sosa SAND FILLER Unavailable +[phone] Grupo Lundberg MD Unavailable +[phone] Vaughn Dukes MD Unavailable +[phone] Vaughn Dukse MD Primary Care Provider +[phone] Jye Doll MD Unavailable Encounter Details Date Type Department Care Team (Late st Contact Info) Description 2019 Procedure Pass [facility] [address] [place] [address] Social History Tobacco Use Types Packs/Day Years [...] Description 05/26/2025 3:00 PM EST Office Visit [facility] Internal Medicine [address] [place] [address] Vaughn Dukes MD 40 [place] [address] [email or web address] documented as of this encounter Visit Diagnoses Not on filedocumented in this encounter Additional Health Concerns Assessment Noted Time PHQ-2 Depression Total Score: 5 11/29/19 20 2:10 PM EDT documented as of this encounter Care Teams Electrical Assistant Relationship Specialty Start Date End Date Vaughn Dukes MD 40 [place] [address] PCP - General 08/10/15 08/01/20 Vaughn Dukes MD 40 [place] [address] PCP - General Internal Medicine 08/02/20 Vaughn Dukes MD 40 [place] [address] Historical LMR Provider 03/29/17 09/17/22 Thomas Saunders MD [address] [place] [address] [email or web address] Historical LMR Provider 03/29/17 06/15/21 Charlene Morris MD [address] [place] [address] Historical LMR Provider 03/29/17 2 Dustin Perla MD [address] [place] [address] [address] [place] [address] Historical LMR Provider 03/29/17 06/15/21 Christiane Michele NP [address] [place] [address] Historical LMR Provider 03/29/17 2 Ambar Sosa NP [address] [place] [address] Historical LMR Provider 03/29/17 09/17/22 Grupo Lundberg MD [address] [place] [address] Historical LMR Provider 03/29/17 Vaughn Dukes MD [address] [place] [address] Insurance Assigned Provider 09/12/23 Jey Doll MD [facility] [address] [address] Ophthalmology 09/18/22 documented as of this encounter Additional Source Comments The information contained in this document represents components of the legal health record. It is not the complete legal health record.[facility]
--- OUTSIDE RECORDS SUMMARY | 2025-03-28 15:35 | XMS_ITS | Encounter Summary ---
Author Organization [facility] Address [address] [place] [address] [place] [address] Phone Care Team Providers Care Job Coach Name Role Phone Vaughn Dukes MD Primary Care Provider [phone] Vaughn Dukes MD Unavailable +[phone] Thomas Saunders MD Unavailable +[phone] Charlene Morris MD Unavailable +[phone] Dustin Perla MD Unavailable +[phone] Christiane Michele TANK FURNACE OPERATOR Unavailable +[phone] Ambar Sosa TANK FURNACE OPERATOR Unavailable [phone] Grupo Lundberg MD Unavailable +[phone] Vaughn Dukes MD Unavailable +[phone] Vaughn Dukes MD Primary Care Provider + [phone] Jey Doll MD Unavailable Encounter Details Date Type Department Care Team (Late st Contact Info) Description 08/02/2018 Procedure Pass [facility],Outside Imaging [address] [place] [address] Social History Tobacco Use Types Packs/Day Years Used Date Smoking Tobacco: Former Comments Unknown Sex and Gender Information Value [...] Description 05/26/2025 3:00 PM EST Office Visit [facility] Internal Medicine 40 [place] [address] Vaughn Dukes MD 40 [place] [address] [email or web address] documented as of this encounter Visit Diagnoses Not on filedocumented in this encounter Care Teams Job Coach Relationship Specialty Start Date End Date Vaughn Dukes MD 40 [place] [address] PCP - General 08/10/15 08/01/20 Vaughn Dukes MD 40 [place] [address] PCP - General Internal Medicine 08/02/20 Vaughn Dukes MD 40 [place] [address] Historical LMR Provider 03/29/17 09/17/22 Thomas Saunders MD [address] [place] [address] [place] [address] [email or web address] Historical LMR Provider 03/29/17 06/15/21 Charlene Morris MD [address] [place] [address] Historical LMR Provider 03/29/17 2 Dustin Perla MD 22 [facility], [address] [place] [address] [email or web address] Historical LMR Provider 03/29/17 06/15/21 Christiane Michele, FAVIO [address] [place] [address] Historical LMR Provider 03/29/17 2 Ambar Sosa NP [address] [place] [address] [email or web address] Historical LMR Provider 03/29/17 09/17/22 Grupo Lundberg MD [address] [place] [address] Historical LMR Provider 03/29/17 Vaughn Dukes MD [address] [place] [address] [email or web address] Insurance Assigned Provider 09/12/23 Jey Doll MD Replaced by [facility] [address] [address] Ophthalmology 09/18/22 documented as of this encounter Additional Source Comments The information contained in this document represents components of the legal health record. It is not the complete legal health record.[facility]
--- OUTSIDE RECORDS SUMMARY | 2025-03-28 15:35 | XMS_ITS | Encounter Summary ---
Author Organization [facility] Address [address] [place] [address] [place] [address] Phone Care Team Providers Care Finisher Machine Name Role Phone Vaughn Dukes MD Primary Care Provider [phone] Vaughn Dukes MD Unavailable +[phone] Thomas Saunders MD Unavailable +[phone] Charlene Morris MD Unavailable +[phone] Dustin Perla MD Unavailable +[phone] Christiane Michele BRAND STRATEGIST Unavailable +[phone] Ambar Sosa BRAND STRATEGIST Unavailable [phone] Grupo Lundberg MD Unavailable +[phone] Vaughn Dukes MD Unavailable +[phone] Vaughn Dukes MD Primary Care Provider + [phone] Jey Doll MD Unavailable Encounter Details Date Type Department Care Team (Late st Contact Info) Description 08/02/2018 Procedure Pass [facility],Outside Imaging [address] [place] [address] Social History Tobacco Use Types [...] Description 05/26/2025 3:00 PM EST Office Visit [facility] Internal Medicine 40 [place] [address] Vaughn Dukes MD 40 [place] [address] [email or web address] documented as of this encounter Visit Diagnoses Not on filedocumented in this encounter Care Teams Finisher Machine Relationship Specialty Start Date End Date Vaughn Dukes MD 40 [place] [address] PCP - General 08/10/15 08/01/20 Vaughn Dukes MD 40 [place] [address] PCP - General Internal Medicine 08/02/20 Vaughn Dukes MD 40 [place] [address] Historical LMR Provider 03/29/17 09/17/22 Thomas Saunders MD [address] [place] [address] [place] [address] [email or web address] Historical LMR Provider 03/29/17 06/15/21 Charlene Morris MD [address] [place] [address] Historical LMR Provider 03/29/17 2 Dustin Perla MD 22 [facility], [address] [place] [address] [email or web address] Historical LMR Provider 03/29/17 06/15/21 Christiane Michele, FAVIO [address] [place] [address] Historical LMR Provider 03/29/17 2 Ambar Sosa NP [address] [place] [address] [email or web address] Historical LMR Provider 03/29/17 09/17/22 Grupo Lundberg MD [address] [place] [address] Historical LMR Provider 03/29/17 Vaughn Dukes MD [address] [place] [address] [email or web address] Insurance Assigned Provider 09/12/23 Jey Doll MD [facility] [address] [address] Ophthalmology 09/18/22 documented as of this encounter Additional Source Comments The information contained in this document represents components of the legal health record. It is not the complete legal health record.[facility]
--- OUTSIDE RECORDS SUMMARY | 2025-03-28 15:35 | XMS_ITS | Encounter Summary ---
Author Organization [facility] Address [address] [place] [address] [place] [address] Phone Care Team Providers Care Harvester Operator Name Role Phone Vaughn Dukes MD Primary Care Provider [phone] Vaughn Dukes MD Unavailable +[phone] Thomas Saunders MD Unavailable +[phone] Charlene Morris MD Unavailable +[phone] Dustin Perla MD Unavailable +[phone] Christiane Michele BATTERY TECHNICIAN Unavailable +[phone] Ambar Sosa BATTERY TECHNICIAN Unavailable [phone] Grupo Lundberg MD Unavailable +[phone] Vaughn Dukes MD Unavailable +[phone] Vaughn Dukes MD Primary Care Provider [phone] Jey Doll MD Unavailable Encounter Details Date Type Department Care Team (Late st Contact Info) Description 2019 Procedure Pass [facility] Periop [address] [place] [address] Social History Tobacco Use Types Packs/Day Years [...] Description 05/26/2025 3:00 PM EST Office Visit [facility] Internal Medicine 40 [place] [address] Vaughn Dukes MD 40 [place] [address] [email or web address] documented as of this encounter Visit Diagnoses Not on filedocumented in this encounter Additional Health Concerns Assessment Noted Time PHQ-2 Depression Total Score: 5 11/29/19 20 2:10 PM EDT documented as of this encounter Care Teams Harvester Operator Relationship Specialty Start Date End Date Vaughn Dukes MD 40 [place] [address] PCP - General 08/10/15 08/01/20 Vaughn Dukes MD 40 [place] [address] PCP - General Internal Medicine 08/02/20 Vaughn Dukes MD 40 [place] [address] Historical LMR Provider 03/29/17 09/17/22 Thomas Saunders MD [address] [place] [address] [email or web address] Historical LMR Provider 03/29/17 06/15/21 Charlene Morris MD [address] [place] [address] Historical LMR Provider 03/29/17 2 Dustin Perla MD [address] [place] [address], [address] [place] [address] Historical LMR Provider 03/29/17 06/15/21 Christiane Michele NP [address] [place] [address] Historical LMR Provider 03/29/17 2 Ambar Sosa NP [address] [place] [address] Historical LMR Provider 03/29/17 09/17/22 Grupo Lundberg MD [address] [place] [address] Historical LMR Provider 03/29/17 Vaughn Dukes MD [address] [place] [address] Insurance Assigned Provider 09/12/23 Jey Doll MD [address] [address] Ophthalmology 09/18/22 documented as of this encounter Additional Source Comments The information contained in this document represents components of the legal health record. It is not the complete legal health record.[facility]
--- OUTSIDE RECORDS SUMMARY | 2025-03-28 15:35 | XMS_ITS | Encounter Summary ---
Author Organization [facility] Address [address] [place] [address] Phone Care Team Providers Care Information Technology Specialist Name Role Phone Vaughn Dukes MD Primary Care Provider [phone] Vaughn Dukes MD Unavailable +[phone] Thomas Saunders MD Unavailable +[phone] Charlene Morris MD Unavailable +[phone] Dustin Perla MD Unavailable +[phone] Christiane Michele WET SUIT GLUER Unavailable +[phone] Ambar Sosa WET SUIT GLUER Unavailable [phone] Grupo Lundberg MD Unavailable +[phone] Vaughn Dueks MD Unavailable +[phone] Vaughn Dukes MD Primary Care Provider + [phone] Jey Doll MD Unavailable Encounter Details Date Type Department Care Team (Latest Contact Info) Description 10/13/2017 Transcribe Orders [facility] Laboratory [address] [place], [place] [address] Vaughn Dukes MD [address] [place], [place] [id number] [email or web address] Gastroesophageal reflux disease without esophagitis (Primary Dx); Pure hypercholesterolemia Social History Tobacco Use Types Packs/Day Years Used Date Smoking Tobacco: Former Cigarettes 0.3 14 Smokeless Tobacco: Never Comments:quit 40 years ago Alcohol Use Standard Drinks/Week Comments Yes 1 (1 standard drink = 0.6 oz pur [...] Description 05/26/2025 3:00 PM EST Office Visit [facility] Internal Medicine [address] [place] [address] Vaughn Dukes MD [address] [place] [address] [email or web address] documented as of this encounter Results * Comprehensive metabolic panel (10/13/2017 8:34 AM EDT) SODIUM 144 133 - 146 mmol/L [facility] POTASSIUM 4.5 3.3 - 5.1 mmol/L [facility] CHLORIDE 104 96 - 108 mmol/L [facility] CO2 28 21 - 35 mmol/L [facility] BUN 14 6 - 19 mg/dL [facility] CREATININE 0.80 0.5 - 1.5 mg/dL [facility] GLUCOSE 82 70 - 99 mg/dL [facility] ALBUMIN 4.4 3.9 - 4.8 g/dL [facility] TOTAL PROTEIN 7.1 6.5 - 8.0 g/dL [facility] CALCIUM 9.6 8.4 - 10.3 mg/dL [facility] ALKALINE PHOSPHATASE 73 39 - 117 U/L [facility] TOTAL BILIRUBIN 0.3 0.0 - 1.2 mg/dL [facility] AST 32 0 - 37 U/L [facility] ALT 20 0 - 40 U/L [facility] GLOBULIN 2.7 1 - 4.8 g/dL [facility] EGFR 77 >59 mL/min/1.7 3m2 [facility] Comment:If patient is black, multiply result by 1.159. The eGFR calculation has changed from the MDRD equation to the CKD-EPI equation as of August 11, 2017. ANION GAP 17 10 - 20 mmol/L [facility] Blood 10/13/2017 8:34 AM EDT 10/13/2017 8:36 AM EDT us Vaughn Dukes MD LAB BLOOD ORDERABLES Final Re sult [address] [address] * TSH (10/13/2017 8:34 AM EDT) TSH 3.36 0.27 - 4.20 uIU/mL [facility] Blood 10/13/2017 8:34 AM EDT 10/13/2017 8:36 AM EDT us Vaughn Dukes MD LAB BLOOD ORDERABLES Final Re sult Performing Organization Address [facility] Co de Phone Number [address] [address] * (ABNORMAL) Lipid panel (10/13/2017 8:34 AM EDT) HDL 75 mg/dL [facility] Comment: Interpretation: Risk Level Females Decreased >55mg/dL Average 50-55 mg/dL Increased <50 mg/dL CHOLESTEROL 169 0 - 240 mg/dL [facility] TRIGLYCERIDES 52 30 - 160 mg/dL [facility] LDL 84 50 - 129 mg/dL [facility] Comment: LDL levels in terms of risk for coronary heart disease: <100 mg/dL: Optimal 100-129 mg/dL: Near or above optimal 130-159 mg/dL: Borderline high 160-189 mg/dL: High >190 mg/dL: Very High CARDIAC RISK RATIO 2.3(L) 3.3 - 4.4 C [facility] Blood 10/13/2017 8:34 AM EDT 10/13/2017 8:36 AM EDT us Vaughn Dukes MD LAB BLOOD ORDERABLES Final Re sult Performing Organization Address [facility] Co de Phone Number [address] [address] * CBC (10/13/2017 8:34 AM EDT) WBC 4.55 3.40 - 11.20 K/uL [facility] RBC 4.46 3.80 - 4.80 M/uL [facility] HGB 13.7 12.0 - 15.0 g/dL [facility] HCT 41.4 36.0 - 46.0 % [facility] PLT 194 130 - 400 K/uL [facility] MCV 92.8 79.0 - 98.0 fL [facility] MCH 30.7 27.0 - 34.8 pg [facility] MCHC 33.1 31.5 - 36.0 g/dL [facility] RDW 11.7 10.8 - 14.6 % [facility] MPV 11.3 9.4 - 12.4 fl [facility] NRBC 0.00 /100 WBCs [facility] ABSOLUTE NRBC 0.00 K/uL [facility] Blood 10/13/2017 8:34 AM EDT 10/13/2017 8:36 AM EDT us Vaughn Dukes MD LAB BLOOD ORDERABLES Final Re sult Performing Organization Address [facility] Co de Phone Number [address] [address] documented in this encounter Visit Diagnoses Diagnosis Gastroesophageal reflux disease without esophagitis- Primary Esophageal reflux Pure hypercholesterolemia documented in this encounter Care Teams Information Technology Specialist Relationship Specialty Start Date End Date Vaughn Dukes MD [address] [place] [address] PCP - General 08/10/15 08/01/20 Vaughn Dukes MD [address] [place] [address] [email or web address] PCP - General Internal Medicine 08/02/20 Vaughn Dukes MD [address] [place] [address] [email or web address] Historical LMR Provider 03/29/17 09/17/22 Thomas Saunders MD [address] [place] [address] [email or web address] Historical LMR Provider 03/29/17 06/15/21 Charlene Morris MD [address] [place] [address] Historical LMR Provider 03/29/17 2 Dustin Perla MD [address] [place] [address] [email or web address] Historical LMR Provider 03/29/17 06/15/21 Christiane Michele, FAVIO [address] [place] [address] Historical LMR Provider 03/29/17 2 Ambar Sosa NP [address] [place] [address] [email or web address] Historical LMR Provider 03/29/17 09/17/22 Grupo Lundberg MD [facility] [place] [address] Historical LMR Provider 03/29/17 Vaughn Dukes MD [address] [place] [address] [email or web address] Insurance Assigned Provider 09/12/23 Jey Doll MD [address] [address] Ophthalmology 09/18/22 documented as of this encounter Additional Source Comments The information contained in this document represents components of the legal health record. It is not the complete legal health record.[facility]
--- OUTSIDE RECORDS SUMMARY | 2025-03-28 15:35 | XMS_ITS | Encounter Summary ---
Author Organization [facility] Address [address] [place] [address] [place] [address] Phone Care Team Providers Care Quantitative Associate Name Role Phone Vaughn Dukes MD Primary Care Provider [phone] Vaughn Dukes MD Unavailable +[phone] Thomas Saunders MD Unavailable +[phone] Charlene Morris MD Unavailable +[phone] Dustin Perla MD Unavailable +[phone] Christiane Michele SENIOR HR GENERALIST Unavailable +[phone] Ambar Sosa SENIOR HR GENERALIST Unavailable [phone] Grupo Lundberg MD Unavailable +[phone] Vaughn Dukes MD Unavailable [phone] Vaughn Dukes MD Primary Care Provider [phone] Jey Doll MD Unavailable Encounter Details Date Type Department Care Team (Late st Contact Info) Description 06/22/2019 Procedure Pass [facility] [address] [place] [address] Social History Tobacco Use Types Packs/Day Years Used Date Smoking Tobacco: Former Cigarettes 0.3 14 1 975 - 1989 Smokeless Tobacco: Never Alcohol Use Standard Drinks/Week [...] Description 05/26/2025 3:00 PM EST Office Visit [facility] Internal Medicine [address] [place] [address] Vaughn Dukes MD [address] [place] [address] [email or web address] documented as of this encounter Visit Diagnoses Not on filedocumented in this encounter Care Teams Quantitative Associate Relationship Specialty Start Date End Date Vaughn Dukes MD [address] [place] [address] PCP - General 08/10/15 08/01/20 Vaughn Dukes MD [address] [place] [address] PCP - General Internal Medicine 08/02/20 Vaughn Dukes MD [address] [place] [address] Historical LMR Provider 03/29/17 09/17/22 hTomas Saunders MD [address] [place] [address] [email or web address] Historical LMR Provider 03/29/17 06/15/21 Charlene Morris MD [address] [place] [address] Historical LMR Provider 03/29/17 2 Dustin Perla MD 22 [facility], [address] [place] [address] Historical LMR Provider 03/29/17 06/15/21 Christiane Michele, FAVIO [address] [place] [address] [address] [place] [address] Historical LMR Provider 03/29/17 2 Ambar Sosa NP [address] [place] [address] Historical LMR Provider 03/29/17 09/17/22 Grupo Lundberg MD [address] [place] [address] Historical LMR Provider 03/29/17 Vaughn Dukes MD [address] [place] [address] Insurance Assigned Provider 09/12/23 Jey Doll MD [address] [address] Ophthalmology 09/18/22 documented as of this encounter Additional Source Comments The information contained in this document represents components of the legal health record. It is not the complete legal health record.[facility]
--- OUTSIDE RECORDS SUMMARY | 2025-03-28 15:35 | XMS_ITS | Encounter Summary ---
Author Organization [facility] Address [address] [place] [address] [place] [address] Phone Care Team Providers Care Slusher Operator Name Role Phone Vaughn Dukes MD Primary Care Provider [phone] Vaughn Dukes MD Unavailable +[phone] Thomas Saunders MD Unavailable +[phone] Charlene Morris MD Unavailable +[phone] Dustin Perla MD Unavailable +[phone] Christiane Michele PRIMARY THERAPIST Unavailable +[phone] Ambar Sosa PRIMARY THERAPIST Unavailable [phone] Grupo Lundberg MD Unavailable +[phone] Vaughn Dukes MD Unavailable +[phone] Vaughn Dukes MD Primary Care Provider [phone] Jey Doll MD Unavailable Encounter Details Date Type Department Care Team (Late st Contact Info) Description 04/14/2019 Procedure Pass [facility] [address] [place] [address] Social History Tobacco Use Types Packs/Day Years [...] Description 05/26/2025 3:00 PM EST Office Visit [facility] Internal Medicine [address] [place] [address] Vaughn Dukes MD [address] [place] [address] [email or web address] documented as of this encounter Visit Diagnoses Not on filedocumented in this encounter Care Teams Slusher Operator Relationship Specialty Start Date End Date Vaughn Dukes MD [address] [place] [address] PCP - General 08/10/15 08/01/20 Vaughn Dukes MD [address] [place] [address] PCP - General Internal Medicine 08/02/20 Vaughn Dukes MD [address] [place] [address] Historical LMR Provider 03/29/17 09/17/22 Thomas Saunders MD [address] [place] [address] [email or web address] Historical LMR Provider 03/29/17 06/15/21 Charlene Morris MD [address] [place] [address] Historical LMR Provider 03/29/17 2 Dustin Perla MD 22 [facility], [address] [place] [address] Historical LMR Provider 03/29/17 06/15/21 Christiane Michele, FAVIO [address] [place] [address] [address] [place] [address] Historical LMR Provider 03/29/17 2 Ambar Sosa NP [address] [place] [address] Historical LMR Provider 03/29/17 09/17/22 Grupo Lundberg MD [address] [place] [address] Historical LMR Provider 03/29/17 Vaughn Dukes MD [address] [place] [address] Insurance Assigned Provider 09/12/23 Jey Doll MD [address] [address] Ophthalmology 09/18/22 documented as of this encounter Additional Source Comments The information contained in this document represents components of the legal health record. It is not the complete legal health record.[facility]
--- OUTSIDE RECORDS SUMMARY | 2025-03-28 15:35 | XMS_ITS | Clinical Summary ---
Author Organization [facility] Address [address] [place] [address] [address] Phone Care Team Providers Care Transportation Inspector Name Role Phone Vaughn Dukes MD Unavailable [phone] Vaughn Dukes MD Primary Care Provider [phone] Jey Doll MD Unavailable Allergies Active Allergy Reactions Criticality Noted Date Comments Bupropion Hcl Other (See Comments) 08/23/2024 Cold hands rt leg swollen Dog Dander Unknown 03/24/2023 Erythromycin Rash Low 02/22/2019 Rash, hives, nausea Erythromycin Base Hives,GI Upset Low 05/18/2013 Mold Unknown 03/24/2023 Nitrofurantoin Hives,GI Upset Low 05/18/2013 Nitrofurantoin Macrocrystal Hives 02/22/2019 Rash, hives, nausea Medications b complex vitamins tablet Take 1 tablet by mouth 3 (three) times a week. Active cholecalciferol (VITAMIN D3) 1,000 unit tablet Several times a week, not in the summer. Active vit C/E/Zn/coppr/fatimah tein/zeaxan (PRESERVISION AREDS-2 ORAL) Take 1 capsule by mouth 2 (two) times a day. Active fexofenadine (AMBER) 180 MG tablet Take 180 mg by mouth daily. PRN, daily during allergy season Active acetaminophen (TYLENOL) 650 MG CR tablet Take 650 mg by mouth nightly at bedtime. Active L-LYSINE ORAL Take by mouth. Take tablet by mouth three times a week. Active ALOE VERA ORAL Take 1 capsule by mouth daily. Active moxifloxacin (VIGAMOX) 0.5 % ophthalmic solution Place 1 drop into the left eye daily as needed. 2 Active ketoconazole 2 % creamIndication s:Seborrheic dermatitis Apply topically daily as needed. To face and axillae 30 g 3 2 Active Lactobacillus rhamnosus GG (PROBIOTIC DIGESTIVE CARE ORAL) Take 1 capsule by mouth daily. Active pantoprazole (PROTONIX) 40 MG tabletIndicatio ns:Gastroesopha geal reflux disease Take 1 tablet (40 mg total) by mouth daily as needed. 90 tablet 3 3 Active Additional Information Patient taking differently:40 mg OralDaily, Reported on 11/25/2024 doxycycline hyclate 20 MG tablet Take 20 mg by mouth Every 10 Days. Every 7-10 day as needed for ocular rosacea 3 Active metroNIDAZOLE (ROSADAN) 0.75 % gel as needed. 3 Active valACYclovir (VALTREX) 500 MG tablet TAKE 1 TAB BY MOUTH TWICE DAILY X5 DAYS NEEDED 3 Active valACYclovir (VALTREX) 1000 MG tablet as needed. Active estradioL (ESTRACE) 0.[address] 0.5 mg vaginally once a week. Active LORazepam (ATIVAN) 0.5 MG tabletIndicatio ns:Anxiety Take 1 tablet (0.5 mg total) by mouth every 6 (six) hours as needed for anxiety. 30 tablet 4 Active sertraline (ZOLOFT) 25 MG tablet Take 12.5 mg by mouth daily. 5 Active bevacizumab (AVASTIN) 25 mg/mL Soln 1.25 mg by Intravitreal route once every 6 weeks. For macular degeneration in both eyes managed By Dr. Jey Doll in [place] Active carBAMazepine (TEGRETOL) 200 mg IMMEDIATE release tabletIndicatio ns:Trigeminal neuralgia of left side of face Take 1 tablet (200 mg total) by mouth daily. 90 tablet 2 5 Active Active Problems Problem Noted Date Diagnosed Date Healthcare maintenance 02/24/2024 Overview (02/24/2024): Mammogram 01/29/24 birad 1 ordered by Caterina Hernandez NP Palpitations 02/04/2024 Overview (02/04/2024): Seen in ED [facility] wing- 01/09/24 with c/o palp- HR - 80, EKG NSR 83, work up neg- sent home Spinal stenosis at L4-L5 level 07/07/2023 Assessment & Plan (07/07/2023 3:04 PM EST): Lumbar stenosis at L4-L5 with bilateral hip and lower extremity pain, no weakness noted no atrophies, the chronicity plus the increasing pain would warrant an MRI to come care with the 2020 MRI with which we can then determine if we can send her back to physical therapy or send her to neurosurgery or physiatry. So we will set that up at [place] so it is the same center. Also later on in November she can set up a DEXA at [facility] seeing that it will both been 3 years then since the last 1 and she was osteopenic. Aphthous ulcer of tongue 02/04/2023 Lesion of pharynx 02/04/2023 Assessment & Plan (02/04/2023 11:37 AM EDT): White patch in left posterior pharynx. It is painless. Ref to ENT to consider bx given tob use hx and current use of inhaler cannabis. She will call us this Thursday if she has not heard about referral as she leaves [facility] next week for a vacation. Skin lesion 02/04/2023 Assessment & Plan (02/04/2023 11:35 AM EDT): 2 small red slightly raised itchy round spots on lft hip. Etiology unknown. It appears better from her picture she took 2 days ago. She is keeping it clean and dry and applying bactroban and keeping it covered while out. She can continue same- and call us if it is getting worse/ enlarging Mouth sores 02/02/2023 Overview (02/02/2023): Saw pcp 09/2022- rx Triancinolone 0.1% paste Went to 10/09/22- dx with aphthous ulcer Called Jan 2023- c/o sore throat- and white patch on tongue Acute pain of right knee 10/07/2021 Assessment & Plan (10/07/2021 9:38 AM EDT): Right knee pain appears to be meniscus induced, lasting since May with no clear sentinel event. There may be some overlying radiculopathy lumbar right-sided that could With some of the paresthesias she is having on the roy medial aspect and upper thigh. Upper thigh pain however could also be sprain of the quadriceps. This since there is a lot going on we will obtain an x-ray of the right knee and referral to Dr. Holt in [place] for further assessment and treatment. Currently no anti-inflammatories necessary. Interstitial cystitis 08/24/2018 Overview (08/24/2018): chronic Allergic rhinitis 06/25/2017 Anxiety 06/25/2017 Back pain 06/25/2017 Dry eye syndrome 06/25/2017 Fatigue 06/25/2017 Gastroesophageal reflux disease 06/25/2017 Overview (03/10/2024): [facility] 01/07/24 had travelers diarrhea that provoked IBS symptoms- cont diclotymine noble upper andlower GI they are arranging sched for 03/[address] Garza Hyperlipidemia 06/25/2017 Osteopenia of multiple sites 06/25/2017 Trigeminal neuralgia 06/25/2017 Assessment & Plan (10/07/2021 9:36 AM EDT): From what she is describing it does not seem like the patient has multiple sclerosis so I assured her that that was not the case but rather feel it might be a postprocedural trigeminal symptoms that she is suffering from. Patient recommended to Dr Simmons of [place] she will call and we can then put the referral in., Arthritis Dizziness Overview (11/30/2019): Saw PCP Vaughn uDkes MD on 11/29/2019 for dizziness and recent BP up and down BP was 138/78. TSH checked normal at 2.19. To monitor BP at home. Insomnia Low back pain Overview (11/30/2019): denies current back pain Osteopenia Pulmonary nodule Retinal degeneration Rosacea UTI (urinary tract infection) Encounters Date Type Department Care Team Description 02/24/2025 Telephone [facility] [address] [facility] [place] [address] Vaughn Dukes MD [facility] 01/31/2025 Orders Only [facility] Internal Medicine [address] [facility] [place] [address] Miguel Garcia MD 01/24/2025 Orders Only [facility] Internal Medicine [address] [facility] [place] [address] Miguel Garcia MD 01/04/2025 Orders Only [facility] Internal Medicine [address] [facility] [place] [address] ProviderMiguel MD from Last 3 Months Immunizations Immunization Administration Dates Next Due COVID-19 (Pre-03/30) Pfizer Vaccine, mRNA, PF 03/28/2021,09/20/2020,08/30/2020,08/09 COVID-19 Pfizer Comirnaty Vaccine 12+ 04/01/2021 COVID-19, Unspecified Formulation 04/01/2021 INFLUENZA, SPLIT VIRUS, TRIV ALENT W/ PRESERVATIVE IM 02/17/2012,03/27/2011 Influenza High-Dose Quadriva lent Preservative Free IM 03/24/2023,03/20/2022,04/13/2021 Influenza High-Dose Trivalen t Preservative Free IM 03/25/2024,04/06/2018,03/12/2017 Influenza Quadrivalent Adjuv anted Preservative Free IM 03/07/2020 Influenza Quadrivalent Prese rvative Free IM 03/31/2019,03/25/2016 Pneumococcal conjugate PCV13 08/12/2016 Pneumococcal polysaccharide PPSV23 10/12/2017, Td (adult),2 Lf Tetanus Toxo id, PF, Adsorbed 11/29/2019 Td, unspecified formulation 09/06/1994 Tdap 02/04/2010 Zoster live 04/19/2011 Zoster recombinant 07/10/2021,11/08/2020 Family History Medical History Relation Comments Hypertension Mother Colon polyps Sister Hypertension Sister Relation Status Comments Father Mother Sister Alive Social History Tobacco Use Types Packs/Day Years Used Date Smoking Tobacco: Former Cigarettes 0.3 16 S tarted: 1971 Passive Smoke Exposure: Never Smokeless Tobacco: Never Tobacco Cessation:Counseling Given: Not Answered Alcohol Use Standard Drinks/Week Comments Yes 0 (1 standard drink = 0.6 oz pure alcohol) 3 drinks month if that (mostly wine and some times vodka with tonic) Child or Family Care Answer Date Record ed Do you have problems with on e of the following making it difficult for you to work, study, or receive health care? No 11/05/2020 Education Answer Date Recorded Are you interested in more education? Not on geni e 11/14/2022 Are you concerned about learning? Not on file 11/14/2022 No 11/14/2022 No 11/14/2022 Food Answer Date Recorded Within the past 6 months we worried whether our food would run out before we got money to buy more. Never True 11/05/2020 Within the past 6 months the food we bought just didn't last and we didn't have enough money to get more. Never True Residential Stability Answer Date Recor ded What is your housing situation today? I have janusz sing 11/05/2020 How many times have you move d in the past 12 months? Zero (I did not move) 11/05/2020 06 Are you worried that in t he next 2 months, you may not have your own housing to live in? No 11/05/2020 Paying for Meds Answer Date Recorded Do you have trouble paying for medicines? No 11/05/2020 Paying Utility Bills Answer Date Record ed Do you have trouble paying your heating or elect ricity bill? No 11/05/2020 Transportation Answer Date Recorded Has the lack of transportati on kept you from medical appointments or from getting medications? No 11/05/2020 Unemployment Answer Date Recorded Are you currently unemployed or working on a part-time or temporary basis, and looking for work? No 11/05/2020 Digital Access Answer Date Recorded No 11/03/2022 No 11/03/2022 Reliable internet access at home? Not on file 11/03/2022 Device with a working camera? Not on file Intimate Partner Violence Answer Date R ecorded Denied Basic Needs Not on file 03/24/2024 In the past 12 months have y ou been in a relationship with a person who hurts, threatens, or tries to control you? No 03/24/2024 Worried food would run out Not on file 03/24 In the past 12 months have y ou been in a relationship with a person who hurts, threatens, or tries to control you? No 03/24/2024 Comments No Sex and Gender Information Value Date Recorded Sex Assigned at Female 11/05/2020 9:53 AM EDT Legal Sex Female 2:08 PM EDT Gender Identity Female 12/17/2021 8:06 AM EDT Sexual Orientation Straight 12/17/2021 8: 06 AM EDT Last Filed Vital Signs Vital Sign Reading Time Taken Comments Blood Pressure 138/78 11/25/2024 3:04 PM EDT Pulse 68 11/25/2024 3:04 PM EDT Temperature 37.1 C (98.8 F) 11/25/2024 3:04 PM EDT Respiratory Rate 16 09/05/2024 2:47 PM EDT Oxygen Saturation 99% 11/25/2024 3:04 PM EDT Inhaled Oxygen Concentration - - Weight 51.5 kg (113 lb 9.6 oz) 11/25/2024 3:04 P M EDT Height 160.9 cm (5' 3.35 ) 11/25/2024 3:04 PM ED T Body Mass Index 19.9 11/25/2024 3:04 PM EDT Plan of Treatment Upcoming Encounters Date Type Department Care Team (Late st Contact Info) Description 05/26/2025 3:00 PM EST Office Visit [facility] Internal Medicine [address] [place] [address] Vaughn Dukes MD [address] [place] [address] [email or web address] Health Maintenance Due Date Last Done Comments COLOGUARD 12/08/1995 FIT TEST 12/08/1995 FOBT 12/08/1995 SIGMOIDOSCOPY 12/08/1995 VIRTUAL COLONOSCOPY 12/08/1995 CARBAMAZEPINE (TEGRETOL) LEVEL 11/28/2020 11/29/2019, 06/25/2017 INFLUENZA VACCINE (#1) 2025 , 03/24/2023, 03/20/2022, Additional history exists COVID-19 VACCINE (2024- season) 2025 03/07/2024, 04/24/2023, 02/28/2022, Additional history exists DEPRESSION SCREENING 09/05/2025 09/05/2024, 09/06/19 RSV VACCINE (1 - 1-dose 75+ series) 2025 FOLLOW UP BONE DENSITY TESTING 09/22/2026 09/22/2024, 03/25/2024, 07/07/2023, Additional history exists MAMMOGRAM 01/30/2027 01/30/2025, 01/07, 01/26/2023, Additional history exists LIPID PANEL 08/23/2029 08/23/2024, 03/08, 03/26/2023, Additional history exists Adult Td,Tdap Booster 11/28/2029 11/29/2019 , 02/04/2010, 09/06/1994 COLONOSCOPY 03/04/2034 03/04/2024, 04/12/2014 COLORECTAL CANCER SCREENING 03/04/2034 PNEUMOCOCCAL VACCINES (50+ years) Completed 10/12/2017, 08/12/2016, 04/08/1996 HEPATITIS C SCREENING Completed 08/06/2020 ZOSTER VACCINES Completed 07/10/2021, 06/0 08/2020, 04/19/2011 OSTEOPOROSIS SCREENING INITIAL (ONE-TIME) Completed 09/22/2024, 03/25/2024, 07/07/2023, Additional history exists SMOKING STATUS SCREENING (Once After 26 Yrs) Completed 11/25/2024 HEPATITIS A VACCINES Aged Out No long er eligible based on patient's age to complete this topic HIB VACCINES Aged Out No longer eligi ble based on patient's age to complete this topic MENINGOCOCCAL VACCINES (ACWY) Aged Out No longer eligible based on patient's age to complete this topic MENINGOCOCCAL VACCINES (B) Aged Out N o longer eligible based on patient's age to complete this topic Medical Devices Not on file Procedures Procedure Name Priority Date/Time Associated Diagnosis Comments HM MAMMOGRAPHY Routine 01/30/2025 8:23 AM EDT OUTSIDE US VEINS EXTREMITY LOWER REPORT ONLY Routine 01/23/2025 4:39 PM EDT OUTSIDE US IMAGING REPORT ONLY Routine 01/03/2025 9:38 AM EDT HM DEXA SCAN Routine 09/22/2024 9:56 AM EDT LIPID PANEL Routine 08/23/2024 3:29 PM EDT Palpitations Other chest pain HM COLONOSCOPY FOR RESULT ENTRY ONLY Routine 03/04/2024 HEPATITIS C ANTIBODY, QUALITATIVE Routine 08/06/2020 4:04 PM EST Need for hepatitis C screening test CARBAMAZEPINE (TEGRETOL) LEVEL Routine 11/29/2019 2:51 PM EDT Trigeminal neuralgia of left side of face from Last 3 Months or Most Recently Relevant to Health Maintenance Results * HM MAMMOGRAPHY FOR RESULT ENTRY ONLY (01/30/2025 8:23 AM EDT) Historical Provider HEALTH MAINTENANCE Final Result * Outside US Veins Extremity Lower Report Only (01/23/2025 4:39 PM EDT) Historical Provider MD HOFFMAN US THYROID Final Res ult * Outside US Imaging??Report Only (01/03/2025 9:38 AM EDT) Historical Provider MD HOFFMAN US OP Final Res ult * HM DEXA SCAN (09/22/2024 9:56 AM EDT) Historical Provider HEALTH MAINTENANCE Final Result * (ABNORMAL) Lipid panel (08/23/2024 3:29 PM EDT) HDL 67 mg/dL [facility] Comment: Interpretation <40 mg/dL: Low HDL cholesterol (major risk factor for CHD) Greater than or equal to 60 mg/dL: High HDL cholesterol ( negative risk factor for CHD) HDL - cholesterol is affected by a number of factors, e.g. smoking, excerise, hormones, sex and age. CHOLESTEROL 199 0 - 240 mg/dL [facility] TRIGLYCERIDES 128 30 - 160 mg/dL [facility] LDL 106 50 - 129 mg/dL [facility] Comment: LDL levels in terms of risk for coronary heart disease: <100 mg/dL: Optimal 100-129 mg/dL: Near or above optimal 130-159 mg/dL: Borderline high 160-189 mg/dL: High >190 mg/dL: Very High CARDIAC RISK RATIO 3.0(L) 3.3 - 4.4 C [facility] Blood 08/23/2024 3:29 PM EDT 08/23/2024 3:34 PM EDT Vaughn Dukes MD LAB BLOOD ORDERABLES Final Re sult Performing Organization Address City/[facility]/ZIP Co de Phone Number [address] [phone] * COLONOSCOPY FOR RESULT ENTRY ONLY (03/04/2024) Pathologist [facility] Colonoscopy adenoma Historical Provider HEALTH MAINTENANCE Final Result * Hepatitis C antibody, qualitative (08/06/2020 4:04 PM EST) HCV NON-REACTIV E NON-REACTI VE [facility] Blood 08/06/2020 4:04 PM EST 08/06/2020 4:13 PM EST Vaughn Dukes MD LAB BLOOD ORDERABLES Final Re sult Performing Organization Address City/[facility]/ZIP Co de Phone Number [address] [address] * (ABNORMAL) Carbamazepine (Tegretol) level (11/29/2019 2:51 PM EDT) CARBAMAZEPINE 2.4(L) 8.0 - 12.0 ug/mL [facility] Blood 11/29/2019 2:51 PM EDT 11/29/2019 2:57 PM EDT us Vaughn Dukes MD LAB BLOOD ORDERABLES Final Re sult [facility] [address] [place] [address] from Last 3 Months or Most Recently Relevant to Health Maintenance Insurance MEDICARE PART A & B [facility] MEDICARE SUPPLEMENT MEDICARE PART A & B [employer] MEDICARE SUPPLEMENT MEDICARE PART A & B [employer] MEDICARE SUPPLEMENT MEDICARE PART A & B [facility] MEDICARE SUPPLEMENT MEDICARE PART A & B [facility] MEDICARE SUPPLEMENT MEDICARE PART A & B [facility] [employer] MEDICARE SUPPLEMENT MEDICARE PART A & B [employer] MEDICARE SUPPLEMENT MEDICARE PART A & B [employer] MEDICARE SUPPLEMENT MEDICARE PART A & B [facility] [employer] MEDICARE SUPPLEMENT Care Teams Transportation Inspector Relationship Specialty Start Date End Date Vaughn Dukes MD [address] [place] [id number] [email or web address] PCP - General Internal Medicine 08/02/20 Vaughn Dukes MD [address] [place] [phone] [email or web address] Insurance Assigned Provider 09/12/23 Jey Doll MD [address] [place] [address] Ophthalmology 09/18/22 Additional Source Comments The information contained in this document represents components of the legal health record. It is not the complete legal health record.[facility]
--- OUTSIDE RECORDS SUMMARY | 2025-03-28 15:35 | XMS_ITS | Encounter Summary ---
Author Organization [facility] Address [address] [place] [address] [place] [phone] Phone Care Team Providers Care Construction Analyst Name Role Phone Vaughn Dukes MD Primary Care Provider [phone] Vaughn Dukes MD Unavailable [phone] Thomas Saunders MD Unavailable [phone] Charlene Morris MD Unavailable [phone] Dustin Perla MD Unavailable [phone] Christiane Michele SUPERVISOR ADVERTISING [employer]PATCH [employer]ERKS Unavailable [phone] Ambar Sosa SUPERVISOR ADVERTISING [employer]PATCH [employer] Unavailable [phone] Grupo Lundberg MD Unavailable [phone] Vuaghn Dukes MD Unavailable [phone] Vaughn Dukes MD Primary Care Provider [phone] Jey Doll MD Unavailable Encounter Details Date Type Department Care Team (Late st Contact Info) Description 04/14/2019 Procedure [facility] [address] [place] [phone] Social History Tobacco Use Types Packs/Day Years [...] Description 05/26/2025 3:00 PM EST Office Visit [facility] Internal Medicine [address] [place] [address] Vaughn Dukes MD [address] [place] [address] [email or web address] documented as of this encounter Visit Diagnoses Not on filedocumented in this encounter Care Teams Construction Analyst Relationship Specialty Start Date End Date Vaughn Dukes MD [address] [place] [address] PCP - General 08/10/15 08/01/20 Vaughn Dukes MD [address] [place] [address] PCP - General Internal Medicine 08/02/20 Vaughn Dukes MD [address] [place] [address] Historical LMR Provider 03/29/17 09/17/22 Thomas Saunders MD [address] [place] [address] [place] [address] [email or web address] Historical LMR Provider 03/29/17 06/15/21 Charlene Morris MD [address] [place] [address] Historical LMR Provider 03/29/17 2 Dustin Perla MD [address] [facility], [address] [place] [address] [email or web address] Historical LMR Provider 03/29/17 06/15/21 Christiane Michele, FAVIO [address] [place] [address] Historical LMR Provider 03/29/17 2 Ambar Sosa NP [address] [place] [id number] [email or web address] Historical LMR Provider 03/29/17 09/17/22 Grupo Lundberg MD [address] [place] [address] Historical LMR Provider 03/29/17 Vaughn Dukes MD [address] [place] [address] [email or web address] Insurance Assigned Provider 09/12/23 Jey Doll MD [facility] [address] [address] Ophthalmology 09/18/22 documented as of this encounter Additional Source Comments The information contained in this document represents components of the legal health record. It is not the complete legal health record.[facility]
== END 2025-03-28 12:02 | disposition home or self-care (01) ==
LOC: HO.LAB 12:01
PROVIDERS: PCP Internal Medicine; Visit Provider Internal Medicine Gastroenterology
DX: R07.0 Pain in throat (principal); R10.10 Upper abdominal pain, unspecified
CPT/HCPCS: 36415; 80076; 83690; 85027

== ENCOUNTER 2025-05-08 12:53 | Outpatient (REF) | payer MEDICARE, OTHER, SELFPAY ==
--- OUTSIDE RECORDS SUMMARY | 2025-01-23 06:30 | XMS_ITS | Continuity of Care Document ---
Author Organization [facility] Address [address] [place] [address] [address] [place] [address] Phone Care Team Providers Care Dredge Pumper Name Role Phone Kenneth CLAIRE, KYLE, DESIREE, Shen Unavailable U navailable Allergies, Adverse Reactions, Alerts Substance Reaction Status Criticality erythromycin base Active No Informa tion NITROFURANTOIN MACROCRYSTALLINE Active No Information Procedures Procedure Date Duplex Scan-extrem Veins; Uni/ CT & [place] A PT Did Not Receive Services Duplex Scan-extrem Veins; Uni/ CT & [place] A Varithena, Single Truncal Vein - CT & [place] Office/Oupt E&M New Pt 30 Mins- CT & [place] Duplex Scan-extrem Veins; Comp- CT & [place] Advance Directives Directive Yes / No Effective Date File Name No Information Encounters Encounter Description Practice Location Reason(s) For Visit Diagnoses Date Provider Providers Copied on Encounter [facility], [address] [place] [address] Dr Ayon [address], [place], [id number], [place] tel:[phone] [facility] - [place] Pain in right leg 5 Kenneth CLAIRE, DESIREE WRIGHT. [address] [facility], [address], [facility] [id number] , [place]. tel:[phone] Referring Provider: Vaughn Champagne, [address] [place] [address] Internal [facility], [place], [address]. tel:[phone] [facility], [address] [place] [address] Dr Ayon 1000[address] 1000[place], [id number], [place] tel:[phone] [facility] No Information 5 Kenneth CLAIRE RVT, DESIREE Gotti. [address] [address], [place], [place], [id number] , [place]. tel:[phone] Referring Provider: Vaughn Champagne, [address] [place] [address] Internal [facility], [place], [address]. tel:[phone] [facility], [address] [place] [address] Dr Ayon 1000[address] 1000[place], [id number], [place] tel:[phone] [facility] Encounter for follow-up examination after completed treatment for conditions other than malignant neoplasmVaric ose veins of right lower extremity with pain 5 Kenneth CLAIRE RVT, DESIREE Gotti. [address] [place] [address], [place], [place], [id number] , [place]. tel:[phone] Referring Provider: Vaughn Champagne, [address] [place] [address] Internal [facility], [place], [address]. tel:[phone] [facility], [address] [place] [address] Dr Ayon 1000[address] 1000[place], [id number], [place] tel:[phone] [facility] Chronic venous hypertension (idiopathic) with inflammation of right lower extremity 5 Kenneth CLAIRE RVT, RPVI Robert. [address] [place] [address] 302, [place], [place], [id number] , [place]. tel:[phone] Referring Provider: Vaughn Champagne, [address] [place] [address] Internal [facility], [place], [address]. tel:[phone] [facility], [address] [place] [address] Dr [address], [id number], tel:[phone] [facility] [place] No Information 5 Kenneth CLAIRE RVT, DESIREE Gotti. [address] [place] [address], [place], [place], [id number] , [place]. tel:[phone] Office/Oupt E&M New Pt 30 Mins- CT & [place] [facility], [address] [place] [address] Dr Ayon 1000[address] 1000[place], [id number], tel:[phone] [facility] [place] Pain in right lower legPain in left lower legLocalized edemaCramp and spasmVenous insufficiency (chronic) (peripheral)P ruritus, unspecifiedCh est pain, unspecified 5 Kenneth CLAIRE RVT, DESIREE Gotti. [address] [place] [address], [place], [place], [id number] , [place]. tel:[phone] Referring Provider: Vaughn Dukes MD Ihsan, [address] [place] [address] Internal Medicine, [place], [address]. tel:[phone] [facility], [address] [place] [address] Dr Ayon 1000[facility] 1000, [place], [id number], [place] tel:[phone] [facility] - [place] Chronic venous hypertension (idiopathic) with other complications of bilateral lower extremity 5 Kenneth CLAIRE RVT, DESIREE Gotti. [address] [place] [address], [place], [place], [id number] , [place]. tel:[phone] Referring Provider: Vaughn Champagne, [address] [place] [address] Internal Medicine, [place], [address]. tel:[phone] Family History Family Member Type Diagnosis Age At Onset No Information Payers Payer name Insurance type Covered republican ID Authoriza tion(s) Medicare [place]CE BRAY [id number] [facility] CI [id number] Social History Type Description Quantity Date Captured Comments Sex Female Smoking Status No Information Chief Complaint And Reason For Visit No Information Reason For Referral Reason For Referral No Information Plan Of Treatment Date Type Action Status Goal Tobacco cessation counseling completed History Of Present Illness Encounter Date Complaint History Of Prese nt Illness No Information Functional Status Date Functional Assessmen t No Information Instructions Date Instruction Additional Infor gold Pre and post instruc tions reviewed and provided Related to Pain in right lower leg Patient education booklet given Related to Pain in right lower leg Assessments Type Assessment Date No Information Patient Care Teams Name Effective Dates (start - stop) Status Members No Information
[2025-05-08 14:32] LABS: Alanine Aminotransferase 27 U/L (0-31); Albumin Level 4.7 g/dL (3.5-5.0); Alkaline Phosphatase 94 U/L (39-117); Aspartate Amino Transferase 40 U/L (5-31); Iron 83 mcg/dL (30-160); Percent Iron Saturation 28 % (15-50); Total Iron Binding Capacity 294 mcg/dL (228-428); Total Protein 7.2 g/dL (6.5-8.0); Unsaturated Iron Binding 211 ug/dL
[2025-05-08 14:38] LABS: Ferritin 75 ng/mL (10-250)
--- OUTSIDE RECORDS SUMMARY | 2025-05-08 16:30 | XMS_ITS | Encounter Summary ---
Author Organization [facility] Address [address] [place] [address] Phone Care Team Providers Care Vamp Maker Name Role Phone Vaughn Dukes MD Primary Care Provider [phone] Vaughn Dukes MD Unavailable [phone] Thomas Saunders MD Unavailable [phone] Charlene Morris MD Unavailable +[phone] Dustin Perla MD Unavailable [phone] Christiane Michele RECEPTION CENTRE MANAGER Unavailable [phone] Ambar Sosa RECEPTION CENTRE MANAGER Unavailable [phone] Grupo Lundberg MD Unavailable [phone] Vaughn Dukes MD Unavailable [phone] Vaughn Dukes MD Primary Care Provider [phone] Jey Doll MD Unavailable Reason for Referral * MRI/CAT Scan - Closed Specialty Diagnoses / Procedures Referred By Contac t Referred To Contact Procedures MRI Brain Outside (No Interpretation) System, Provider Not In, PhD [address] [address] Referral ID Status Reason Start Date Expiration Date Visits Re quested Visits Authorized [id number] Closed 08/02/2018 08/02/2019 1 1 * MRI/CAT Scan - Closed Specialty Diagnoses / Procedures Referred By Contac t Referred To Contact Procedures MRI Brain Outside (No Interpretation) System, Provider Not In, PhD Partners [address] [address] Referral ID Status Reason Start Date Expiration Date Visits Re quested Visits Authorized [id number] Closed 08/02/2018 08/02/2019 1 1 Encounter Details Date Type Department Care Team ([facility] Contact Info) Description 08/02/2018 Ancillary Orders [facility],Outside Imaging [address] [place] [address] System, Provider Not In, PhD [address] [address] Social History Tobacco Use Types Packs/Day Years Used Date Smoking Tobacco: Former Cigarettes 0.3 14 1 [phone] - 8167 Smokeless Tobacco: Never Comments:quit 40 years ago [...] Department Care Team (Late Contact Info) Description 07/26/2025 10:00 AM EST Office Visit [facility] Internal Medicine [address] [place] [address] Vaughn Dukes MD [address] [place] [address] [email or web address] documented as of this encounter Results * [...] on filedocumented in this encounter Care Teams Vamp Maker Relationship Specialty Start Date End Date Vaughn Dukes MD [address] [place] [address] PCP - General 08/10/15 08/01/20 Vaughn Dukes MD [address] [place] [address] PCP - General Internal Medicine 08/02/20 Vaughn Dukes MD [address] [place] [address] [email or web address] Historical LMR Provider 03/29/17 09/17/22 Thomas Saunders MD [address] [place] [address] [email or web address] Historical LMR Provider 03/29/17 06/15/21 Charlene Morris MD [address] [place] [address] Historical LMR Provider 03/29/17 2 Dustin Perla MD [address] [place] [address], [address] [address] Historical LMR Provider 03/29/17 06/15/21 Christiane Michele NP [address] [place] [address] Historical LMR Provider 03/29/17 2 Ambar Sosa NP [address] [place] [address] Historical LMR Provider 03/29/17 09/17/22 Grupo Lundberg MD [address] [place] [address] Historical LMR Provider 03/29/17 Vaughn Dukes MD [address] [place] [address] [email or web address] Insurance Assigned Provider 09/12/23 Jey Doll MD [address] [place] [address] Ophthalmology 09/18/22 documented as of this encounter Additional Source Comments The information contained in this document represents components of the legal health record. It is not the complete legal health record.[facility]
--- OUTSIDE RECORDS SUMMARY | 2025-05-08 16:30 | XMS_ITS | Encounter Summary ---
Author Organization [facility] Address [address] [facility] [address] [place] [address] Phone Care Team Providers Care Bedspread Cutter Name Role Phone Vaughn Dukes MD Unavailable [phone] Vaughn Dukes MD Primary Care Provider [phone] Jey Doll MD Unavailable Reason for Referral * Consultation (Within 1 month) - Authorized Specialty Diagnoses / Procedures Referred By Sharan t Referred To Contact Diagnoses Chronic venous insufficiency of lower extremity Vaughn Dukes MD [address] [place] [address] Phone: tel: fax: mailto: Referral ID Status Reason Start Date Expiration Date V isits Requested Visits Authorized [id number] Authorized 03/01/2025 02/24/2026 6 6 Reason for Visit * Reason Onset Date Comments Referral 02/24/2025 [facility] Encounter Details Date Type Department Care Team (Late st Contact Info) Description 02/24/2025 Telephone [facility] Internal Medicine [address] [place] [address] Vaughn Dukes MD [address] [place], [place] Referral ([facility]) Social History Tobacco Use Types Packs/Day Years Used Date Smoking Tobacco: Former Cigarettes 0.3 16 S tarted: 1972 Passive Smoke Exposure: Never Smokeless Tobacco: Never Alcohol Use Standard Drinks/Week [...] with a working camera? Not on file 05 / Intimate Partner Violence Answer Date R ecorded [...] AM EDT documented as of this encounter Progress Notes * Francheska Robins - 03/02/2025 9:49 AM EDT Referral, OV Note, Demographics faxed to [facility] [phone]/confirmation received * Vaughn Dukes MD - 03/01/2025 6:32 PM EDT Referral signed, please fax and notify patient. * Lina Cortés RN - 02/28/2025 8:28 AM EDT Spoke to Ulysses and she reports that she has had extreme pain in her right leg for months with numbness and tingling by the ankle. States she has discussed this Dr. Dukes previously. States that all ofa sudden the varicose veins are very prominent on both legs. She recently got up in the middle of the night and felt a very itchy spot and she noticed 3 more areas or swollen veins and the skin around it looked darker. Wearing compression stocking. She is quite concerned because her mother had venous insufficiency and she wants to see a specialist. * Vaughn Dukes MD - 02/27/2025 7:28 PM EDT Please triage. I need to know what her symptoms are in detail. * Lina Cortés RN - 02/24/2025 10:07 AM EDT Pended for review * Susan Viera - 02/24/2025 10:00 AM EDT [facility] Smart Phrases: Referral Request 1. Name of the office where the patient has been seen/requests to be seen: [facility] 2. Reason for referral/specialist appointment and the diagnosis code: Chronic venous insufficiency both legs 2A. Have you seen this provider before for this same problem? YES/NO: no 2B. If this is a new problem, is your PCP aware of your symptoms? YES/NO: yes 3. Date of appointment(s):\ N/A 4. Name of specialist provider: N/A 5. NPI number to enter for referral authorization (enter n/a if not available): N/A 6. Number of visits requested for referral: 6 7. Fax number of specialist office to send referral authorization: [phone] Pt has been dealing with symptoms for a long time and PCP is aware, she would like this marked urgent if possible documented in this encounter Plan of Treatment Upcoming Encounters Date Type Department Care Team (Late st Contact Info) Description 07/26/2025 10:00 AM EST Office Visit [facility] Internal Medicine [address] [place] [address] Vaughn Dukes MD [address] [place] [address] Scheduled Referrals Name Type Priority Associated Diagnoses Orde r Schedule Ambulatory referral to External Vascular Medicine Outpatient Referral Routine Chronic venous insufficiency of lower extremity Ordered: 03/01/2025 documented as of this encounter Visit Diagnoses Diagnosis Chronic venous insufficiency of lower extremity- Primary documented in this encounter Additional Health Concerns Assessment Noted Time PHQ-9 Depression Total Score: 3 09/06/19 9:20 AM EDT PHQ-2 Depression Total Score: 2 09/06/19 9:20 AM EDT documented as of this encounter Care Teams Bedspread Cutter Relationship Specialty Start Date End Date Vaughn Dukes MD [address] [place] [address] [email or web address] PCP - General Internal Medicine 08/02/20 Vaughn Dukes MD [address] [place] [address] [email or web address] Insurance Assigned Provider 09/12/23 Jey Doll MD [address] [address] Ophthalmology 09/18/22 documented as of this encounter Additional Source Comments The information contained in this document represents components of the legal health record. It is not the complete legal health record.[facility]
--- OUTSIDE RECORDS SUMMARY | 2025-05-08 16:31 | XMS_ITS | Encounter Summary ---
Author Organization [facility] Address [address] [place] [address] [place] [address] Phone Care Team Providers Care Milk Driver Name Role Phone Vaughn Dukes MD Primary Care Provider [phone] Vaughn Dukes MD Unavailable [phone] Thomas Saunders MD Unavailable [phone] Charlene Morris MD Unavailable [phone] Dustin Perla MD Unavailable [phone] Christiane Michele CORRECTIVE AND MANUAL ARTS THERAPIST Unavailable [phone] Ambar Sosa CORRECTIVE AND MANUAL ARTS THERAPIST Unavailable [phone] Grupo Lundberg MD Unavailable [phone] Vaughn Dukes MD Unavailable [phone] Vaughn Dukes MD Primary Care Provider [phone] Jey Doll MD Unavailable Encounter Details Date Type Department Care Team (Late st Contact Info) Description 06/22/2019 Procedure Pass [facility] [address] [place] [address] Social History Tobacco Use Types Packs/Day Years [...] Description 07/26/2025 10:00 AM EST Office Visit [facility] Internal Medicine [address] [place] [address] Vaughn Dukes MD [address] [place] [address] [email or web address] documented as of this encounter Visit Diagnoses Not on filedocumented in this encounter Care Teams Milk Driver Relationship Specialty Start Date End Date Vaughn Dukes MD [address] [place] [address] PCP - General 08/10/15 08/01/20 Vaughn Dukes MD [address] [place] [address] PCP - General Internal Medicine 08/02/20 Vaughn Dukes MD [address] [place] [address] Historical LMR Provider 03/29/17 09/17/22 Thomas Saunders MD [address] [place] [address] [email or web address] Historical LMR Provider 03/29/17 06/15/21 Charlene Morris MD [address] [place] [address] Historical LMR Provider 03/29/17 2 Dustin Perla MD [address] [facility], [address] [place] [address] Historical LMR Provider 03/29/17 06/15/21 Christiane Michele, FAVIO [address] [place] [address] [address] [place] [address] Historical LMR Provider 03/29/17 2 Ambar Sosa NP [address] [place] [address] Historical LMR Provider 03/29/17 09/17/22 Grupo Lundberg MD [address] [place] [address] Historical LMR Provider 03/29/17 Vaughn Dukes MD [address] [place] [address] Insurance Assigned Provider 09/12/23 Jey Doll MD [address] [address] Ophthalmology 09/18/22 documented as of this encounter Additional Source Comments The information contained in this document represents components of the legal health record. It is not the complete legal health record.[facility]
--- OUTSIDE RECORDS SUMMARY | 2025-05-08 16:31 | XMS_ITS | Encounter Summary ---
Author Organization [facility] Address [address] [place] [address] [place] [address] Phone Care Team Providers Care Mill Operator Head Name Role Phone Vaughn Dukes MD Primary Care Provider [phone] Vaughn Dukes MD Unavailable [phone] Thomas Saunders MD Unavailable [phone] Charlene Morris MD Unavailable [phone] Dustin Perla MD Unavailable [phone] Christiane Michele MEDICAL PATHOLOGY TEACHER Unavailable [phone] Ambar Sosa MEDICAL PATHOLOGY TEACHER Unavailable [phone] Grupo Lundberg MD Unavailable [phone] Vaughn Dukes MD Unavailable [phone] Vaughn Dukes MD Primary Care Provider [phone] Jey Doll MD Unavailable Encounter Details Date Type Department Care Team (Late st Contact Info) Description 2019 Procedure Pass [facility] [address] [place] [address] Social History Tobacco Use Types Packs/Day Years [...] Description 07/26/2025 10:00 AM EST Office Visit [facility] Internal Medicine [address] [place] [address] Vaughn Dukes MD [address] [place] [address] [email or web address] documented as of this encounter Visit Diagnoses Not on filedocumented in this encounter Additional Health Concerns Assessment Noted Time PHQ-2 Depression Total Score: 5 11/29/19 20 2:10 PM EDT documented as of this encounter Care Teams Mill Operator Head Relationship Specialty Start Date End Date Vaughn Dukes MD [address] [place] [address] PCP - General 08/10/15 08/01/20 Vaughn Dukes MD [address] [place] [address] PCP - General Internal Medicine 08/02/20 Vaughn Dukes MD [address] [place] [address] Historical LMR Provider 03/29/17 09/17/22 Thomas Saunders MD [address] [place] [address] [email or web address] Historical LMR Provider 03/29/17 06/15/21 Charlene Morris MD [address] [place] [address] Historical LMR Provider 03/29/17 2 Dustin Perla MD [address] [place] [address], [address] [place] [address] Historical LMR Provider 03/29/17 06/15/21 Christiane Michele NP [address] [place] [address] Historical LMR Provider 03/29/17 2 Ambar Sosa NP [address] [place] [address] Historical LMR Provider 03/29/17 09/17/22 Grupo Lundberg MD [address] [place] [address] Historical LMR Provider 03/29/17 Vaughn Dukes MD [address] [place] [address] Insurance Assigned Provider 09/12/23 Jey Doll MD [address] [place] [address] Ophthalmology 09/18/22 documented as of this encounter Additional Source Comments The information contained in this document represents components of the legal health record. It is not the complete legal health record.[facility]
--- OUTSIDE RECORDS SUMMARY | 2025-05-08 16:31 | XMS_ITS | Encounter Summary ---
Author Organization [facility] Address [address] [place] [address] [place] [address] Phone Care Team Providers Care Food Counselor Name Role Phone Vaughn Dukes MD Primary Care Provider [phone] Vaughn Dukes MD Unavailable +[phone] Thomas Saunders MD Unavailable [phone] Charlene Morris MD Unavailable [phone] Dustin Perla MD Unavailable [phone] Christiane Michele EVENING OR NIGHT NURSE SUPERVISOR Unavailable [phone] Ambar Sosa EVENING OR NIGHT NURSE SUPERVISOR Unavailable [phone] Grupo Lundberg MD Unavailable [phone] Vaughn Dukes MD Unavailable [phone] Vaughn Dukes MD Primary Care Provider [phone] Jey Doll MD Unavailable Encounter Details Date Type Department Care Team (Late st Contact Info) Description 04/14/2019 Procedure Pass [facility] [address] [place] [address] Social History Tobacco Use Types Packs/Day Years [...] Description 07/26/2025 10:00 AM EST Office Visit [facility] Internal Medicine [address] [place] [address] Vaughn Dukes MD [address] [place] [address] [email or web address] documented as of this encounter Visit Diagnoses Not on filedocumented in this encounter Care Teams Food Counselor Relationship Specialty Start Date End Date Vaughn Dukes MD [address] [place] [address] PCP - General 08/10/15 08/01/20 Vaughn Dukes MD [address] [place] [address] PCP - General Internal Medicine 08/02/20 Vaughn Dukes MD [address] [place] [address] Historical LMR Provider 03/29/17 09/17/22 Thomas Saunders MD [address] [place] [address] [place] [address] [email or web address] Historical LMR Provider 03/29/17 06/15/21 Charlene Morris MD [address] [place] [address] Historical LMR Provider 03/29/17 2 Dustin Perla MD [address] [facility], [address] [place] [address] [email or web address] Historical LMR Provider 03/29/17 06/15/21 Christiane Michele, FAVIO [address] [place] [address] Historical LMR Provider 03/29/17 2 Ambar Sosa NP [address] [place] [address] [email or web address] Historical LMR Provider 03/29/17 09/17/22 Grupo Lundberg MD [address] [place] [address] Historical LMR Provider 03/29/17 Vaughn Dukes MD [address] [place] [address] [email or web address] Insurance Assigned Provider 09/12/23 Jey Doll MD [address] [place] [address] Ophthalmology 09/18/22 documented as of this encounter Additional Source Comments The information contained in this document represents components of the legal health record. It is not the complete legal health record.[facility]
--- OUTSIDE RECORDS SUMMARY | 2025-05-08 16:31 | XMS_ITS | Encounter Summary ---
Author Organization [facility] Address [address] [place] [address] [place] [address] Phone Care Team Providers Care Locum Tenens Psychiatrist Name Role Phone Vaughn Dukes MD Primary Care Provider [phone] Vaughn Dukes MD Unavailable +[phone] Thomas Saunders MD Unavailable [phone] Charlene Morris MD Unavailable [phone] Dustin Perla MD Unavailable [phone] Christiane Michele COORDINATE MEASURING MACHINE TECHNICIAN Unavailable [phone] Ambar Sosa COORDINATE MEASURING MACHINE TECHNICIAN Unavailable [phone] Grupo Lundberg MD Unavailable [phone] Vaughn Dukes MD Unavailable [phone] Vaughn Dukes MD Primary Care Provider [phone] Jey Doll MD Unavailable Encounter Details Date Type Department Care Team (Late st Contact Info) Description 04/14/2019 Procedure Pass [facility] [address] [place] [address] Social History Tobacco Use Types Packs/Day Years [...] Description 07/26/2025 10:00 AM EST Office Visit [facility] Internal Medicine [address] [place] [address] Vaughn Dukes MD [address] [place] [address] [email or web address] documented as of this encounter Visit Diagnoses Not on filedocumented in this encounter Care Teams Locum Tenens Psychiatrist Relationship Specialty Start Date End Date Vaughn Dukes MD [address] [place] [address] PCP - General 08/10/15 08/01/20 Vaughn Dukes MD [address] [place] [address] PCP - General Internal Medicine 08/02/20 Vaughn Dukes MD [address] [place] [address] Historical LMR Provider 03/29/17 09/17/22 Thomas Saunders MD [address] [place] [address] [email or web address] Historical LMR Provider 03/29/17 06/15/21 Charlene Morris MD [address] [place] [address] Historical LMR Provider 03/29/17 2 Dustin Perla MD [address] [facility], [address] [place] [address] Historical LMR Provider 03/29/17 06/15/21 Christiane Michele, FAVIO [address] [place] [address] 104 [place] [address] Historical LMR Provider 03/29/17 2 Ambar Sosa NP [address] [place] [address] Historical LMR Provider 03/29/17 09/17/22 Grupo Lundberg MD [address] [place] [address] Historical LMR Provider 03/29/17 Vaughn Dukes MD [address] [place] [address] Insurance Assigned Provider 09/12/23 Jey Doll MD [facility] [address] [address] Ophthalmology 09/18/22 documented as of this encounter Additional Source Comments The information contained in this document represents components of the legal health record. It is not the complete legal health record.[facility]
--- OUTSIDE RECORDS SUMMARY | 2025-05-08 16:31 | XMS_ITS | Encounter Summary ---
Author Organization [facility] Address [address] [place] [address] [place] [address] Phone Care Team Providers Care Cardiology Teacher Name Role Phone Vaughn Dukes MD Primary Care Provider [phone] Vaughn Dukes MD Unavailable [phone] Thomas Saunders MD Unavailable [phone] Charlene Morris MD Unavailable [phone] Dustin Perla MD Unavailable [phone] Christiane Michele K 9 POLICE OFFICER Unavailable [phone] Ambar Sosa K 9 POLICE OFFICER Unavailable [phone] Grupo Lundberg MD Unavailable [phone] Vaughn Dukes MD Unavailable [phone] Vaughn Dukes MD Primary Care Provider [phone] Jey Doll MD Unavailable Encounter Details Date Type Department Care Team (Late st Contact Info) Description 03/30/2019 Procedure Pass [facility] [address] [place] [address] Social History Tobacco Use Types Packs/Day Years [...] Description 07/26/2025 10:00 AM EST Office Visit [facility] Internal Medicine [address] [place] [address] Vaughn Dukes MD [address] [place] [address] [email or web address] documented as of this encounter Visit Diagnoses Not on filedocumented in this encounter Care Teams Cardiology Teacher Relationship Specialty Start Date End Date Vaughn Dukes MD [address] [place] [address] PCP - General 08/10/15 08/01/20 Vaughn Dukes MD [address] [place] [address] PCP - General Internal Medicine 08/02/20 Vaughn Dukes MD [address] [place] [address] Historical LMR Provider 03/29/17 09/17/22 hTomas Saunders MD [address] [place] [address] [email or web address] Historical LMR Provider 03/29/17 06/15/21 Charlene Morris MD [address] [place] [address] Historical LMR Provider 03/29/17 2 Dustin Perla MD 22 [facility], [address] [place] [address] Historical LMR Provider 03/29/17 06/15/21 Christiane Michele, FAVIO [address] [place] [address] 104 [place] [address] Historical LMR Provider 03/29/17 2 Ambar Sosa NP [address] [place] [address] Historical LMR Provider 03/29/17 09/17/22 Grupo Lundberg MD [address] [place] [address] Historical LMR Provider 03/29/17 Vaughn Dukes MD [address] [place] [address] Insurance Assigned Provider 09/12/23 Jey Doll MD [facility] [place] [address] [address] Ophthalmology 09/18/22 documented as of this encounter Additional Source Comments The information contained in this document represents components of the legal health record. It is not the complete legal health record.[facility]
--- OUTSIDE RECORDS SUMMARY | 2025-05-08 16:31 | XMS_ITS | Encounter Summary ---
Author Organization [facility] Address [address] [place] [address] Phone Care Team Providers Care Teachers Assistant Name Role Phone Vaughn Dukes MD Primary Care Provider [phone] Vaughn Dukes MD Unavailable [phone] Thomas Saunders MD Unavailable [phone] Charlene Morris MD Unavailable [phone] Dustin Perla MD Unavailable [phone] Chirstiane Michele EMR TRAINER Unavailable [phone] Ambar Sosa EMR TRAINER Unavailable [phone] Grupo Lundberg MD Unavailable [phone] Vaughn Dukes MD Unavailable [phone] Vaughn Dukes MD Primary Care Provider [phone] Jey Doll MD Unavailable Encounter Details Date Type Department Care Team (Latest Contact Info) Description 10/13/2017 Transcribe Orders [facility] [place] [address], [place] [id number] Vaughn Dukes MD 40 [place], [place] [id number] [email or web address] Gastroesophageal reflux disease without esophagitis [...] Description 07/26/2025 10:00 AM EST Office Visit [facility] Internal Medicine [address] [place] [address] Vaughn Dukes MD 40 [place] [address] [email or web address] documented as of this encounter Results * Comprehensive metabolic panel (10/13/2017 8:34 AM EDT) SODIUM 144 133 - 146 mmol/L [facility] POTASSIUM 4.5 3.3 - 5.1 mmol/L [facility] CHLORIDE 104 96 - 108 mmol/L [facility] CO2 28 21 - 35 mmol/L [facility] BUN 14 6 - 19 mg/dL [facility] CREATININE 0.80 0.5 - 1.5 mg/dL [facility] GLUCOSE 82 70 - 99 mg/dL [facility] ALBUMIN 4.4 3.9 - 4.8 g/dL [facility] TOTAL PROTEIN 7.1 6.5 - 8.0 g/dL [facility] CALCIUM 9.6 8.4 - 10.3 mg/dL [facility] ALKALINE PHOSPHATASE 73 39 - 117 U/L [facility] TOTAL BILIRUBIN 0.3 0.0 - 1.2 mg/dL [facility] AST 32 0 - 37 U/L [facility] ALT 20 0 - 40 U/L [facility] GLOBULIN 2.7 1 - 4.8 g/dL [facility] EGFR 77 >59 mL/min/1.7 3m2 [facility] Comment:If patient is black, multiply result by 1.159. The eGFR calculation has changed from the MDRD equation to the CKD-EPI equation as of August 11, 2017. ANION GAP 17 10 - 20 mmol/L [facility] Blood 10/13/2017 8:34 AM EDT 10/13/2017 8:36 AM EDT us Vaughn Dukes MD LAB BLOOD BKR ORDERABLES Norma l Result [address] [address] * TSH (10/13/2017 8:34 AM EDT) TSH 3.36 0.27 - 4.20 uIU/mL [facility] Blood 10/13/2017 8:34 AM EDT 10/13/2017 8:36 AM EDT us Vaughn Dukes MD LAB BLOOD BKR ORDERABLES Norma l Result Performing Organization Address City/[facility]/ZIP Co de Phone Number [address] [address] * (ABNORMAL) Lipid panel (10/13/2017 8:34 AM EDT) HDL 75 mg/dL [facility] Comment: Interpretation: Risk Level Females Decreased >55mg/dL Average 50-55 mg/dL Increased <50 mg/dL CHOLESTEROL 169 0 - 240 mg/dL [facility] TRIGLYCERIDES 52 30 - 160 mg/dL [facility] LDL 84 50 - 129 mg/dL [facility] Comment: LDL levels in terms of risk for coronary heart disease: <100 mg/dL: Optimal 100-129 mg/dL: Near or above optimal 130-159 mg/dL: Borderline high 160-189 mg/dL: High >190 mg/dL: Very High CARDIAC RISK RATIO 2.3(L) 3.3 - 4.4 C [facility] Blood 10/13/2017 8:34 AM EDT 10/13/2017 8:36 AM EDT us Vaughn Dukes MD LAB BLOOD BKR ORDERABLES Norma l Result Performing Organization Address [facility] Co de Phone Number [address] [address] * CBC (10/13/2017 8:34 AM EDT) WBC 4.55 3.40 - 11.20 K/uL [facility] RBC 4.46 3.80 - 4.80 M/uL [facility] HGB 13.7 12.0 - 15.0 g/dL [facility] HCT 41.4 36.0 - 46.0 % [facility] PLT 194 130 - 400 K/uL [facility] MCV 92.8 79.0 - 98.0 fL [facility] MCH 30.7 27.0 - 34.8 pg [facility] MCHC 33.1 31.5 - 36.0 g/dL [facility] RDW 11.7 10.8 - 14.6 % [facility] MPV 11.3 9.4 - 12.4 fl [facility] NRBC 0.00 /100 WBCs [facility] ABSOLUTE NRBC 0.00 K/uL [facility] Blood 10/13/2017 8:34 AM EDT 10/13/2017 8:36 AM EDT us Vaughn Dukes MD LAB BLOOD BKR ORDERABLES Norma l Result Performing Organization Address [facility] Co de Phone Number [address] [address] documented in this encounter Visit Diagnoses Diagnosis Gastroesophageal reflux disease without esophagitis- Primary Esophageal reflux Pure hypercholesterolemia documented in this encounter Care Teams Teachers Assistant Relationship Specialty Start Date End Date Vaughn Dukes MD [address] [place] [address] PCP - General 08/10/15 08/01/20 Vaughn Dukes MD [address] [place] [address] PCP - General Internal Medicine 08/02/20 Vaughn Dukes MD [address] [place] [address] Historical LMR Provider 03/29/17 09/17/22 Thomas Saunders MD [address] [place] [address] [email or web address] Historical LMR Provider 03/29/17 06/15/21 Charlene Morris MD [address] [place] [address] Historical LMR Provider 03/29/17 2 Dustin Perla MD [address] [place] [address] [email or web address] Historical LMR Provider 03/29/17 06/15/21 Christiane Michele, FAVIO [address] [place] [address] Historical LMR Provider 03/29/17 2 Ambar Sosa NP [address] [place] [address] [email or web address] Historical LMR Provider 03/29/17 09/17/22 Grupo Lundberg MD [address] [place] [address] Historical LMR Provider 03/29/17 Vaughn Dukes MD [address] [place] [address] [email or web address] Insurance Assigned Provider 09/12/23 Jey Doll MD [address] [place] [address] Ophthalmology 09/18/22 documented as of this encounter Additional Source Comments The information contained in this document represents components of the legal health record. It is not the complete legal health record.[facility]
--- OUTSIDE RECORDS SUMMARY | 2025-05-08 16:31 | XMS_ITS | Encounter Summary ---
Author Organization [facility] Address [address] [place] [address] [place] [address] Phone Care Team Providers Care Fire Engine Pump Operator Name Role Phone Vaughn Dukes MD Primary Care Provider [phone] Vaughn Dukes MD Unavailable [phone] Thomas Saunders MD Unavailable [phone] Charlene Morris MD Unavailable [phone] Dustin Perla MD Unavailable [phone] Christiane Mcihele BACK WEDGER Unavailable [phone] Ambar Sosa BACK WEDGER Unavailable [phone] Grupo Lundberg MD Unavailable [phone] Vaughn Dukes MD Unavailable [phone] Vaughn Dukes MD Primary Care Provider [phone] Jey Doll MD Unavailable Encounter Details Date Type Department Care Team (Late st Contact Info) Description 2019 Procedure Pass [facility] [address] [place] [address] Social History Tobacco Use Types Packs/Day Years [...] Description 07/26/2025 10:00 AM EST Office Visit [facility] Internal Medicine 40 [place] [address] Vaughn Dukes MD [address] [place] [address] [email or web address] documented as of this encounter Visit Diagnoses Not on filedocumented in this encounter Additional Health Concerns Assessment Noted Time PHQ-2 Depression Total Score: 5 11/29/19 20 2:10 PM EDT documented as of this encounter Care Teams Fire Engine Pump Operator Relationship Specialty Start Date End Date Vaughn Dukes MD [address] [place] [address] PCP - General 08/10/15 08/01/20 Vaughn Dukes MD [address] [place] [address] PCP - General Internal Medicine 08/02/20 Vaughn Dukes MD [address] [place] [address] Historical LMR Provider 03/29/17 09/17/22 Thomas Saunders MD [address] [place] [address] [email or web address] Historical LMR Provider 03/29/17 06/15/21 Charlene Morris MD [address] [place] [address] Historical LMR Provider 03/29/17 2 Dustin Perla MD [address] [place] [address] [address] [place] [address] Historical LMR Provider 03/29/17 06/15/21 Christiane Michele NP [address] [place] [address] Historical LMR Provider 03/29/17 2 Ambar Sosa NP [address] [place] [address] Historical LMR Provider 03/29/17 09/17/22 Grupo Lundberg MD [address] [place] [address] Historical LMR Provider 03/29/17 Vaughn Dukes MD [address] [place] [address] Insurance Assigned Provider 09/12/23 Jey Doll MD [address] [place] [address] Ophthalmology 09/18/22 documented as of this encounter Additional Source Comments The information contained in this document represents components of the legal health record. It is not the complete legal health record.[facility]
--- OUTSIDE RECORDS SUMMARY | 2025-05-08 16:31 | XMS_ITS | Encounter Summary ---
Author Organization [facility] Address [address] [place] [address] [place] [address] Phone Care Team Providers Care Board Finisher Name Role Phone Vaughn Dukes MD Primary Care Provider [phone] Vaughn Dukes MD Unavailable [phone] Thomas Saunders MD Unavailable [phone] Charlene Morris MD Unavailable [phone] Dustin Perla MD Unavailable [phone] Christiane Michele COAT ROOM ATTENDANT Unavailable [phone] Ambar Sosa COAT ROOM ATTENDANT Unavailable Grupo Lundberg MD Unavailable [phone] Vaughn Dukes MD Unavailable [phone] Vaughn Dukes MD Primary Care Provider [phone] Jey Doll MD Unavailable Encounter Details Date Type Department Care Team (Late st Contact Info) Description 06/22/2019 Procedure Pass [facility] Periop [address] [place] [address] Social History Tobacco Use Types Packs/Day Years [...] Description 07/26/2025 10:00 AM EST Office Visit [facility] Internal Medicine [address] [place] [address] Vaughn Dukes MD [address] [place] [address] [email or web address] documented as of this encounter Visit Diagnoses Not on filedocumented in this encounter Care Teams Board Finisher Relationship Specialty Start Date End Date Vaughn Dukes MD [address] [place] [address] PCP - General 08/10/15 08/01/20 Vaughn Dukes MD [address] [place] [address] PCP - General Internal Medicine 08/02/20 Vaughn Dukes MD [address] [place] [address] [email or web address] Historical LMR Provider 03/29/17 09/17/22 Thomas Saunders MD [address] [place] [address] [email or web address] Historical LMR Provider 03/29/17 06/15/21 Charlene Morris MD [address] [place] [address] Historical LMR Provider 03/29/17 2 Dustin Peral MD [address] [facility], [address] [place] [address] Historical LMR Provider 03/29/17 06/15/21 Christiane iMchele, COAT ROOM ATTENDANT [address] [place] [address] [address] [place] [address] Historical LMR Provider 03/29/17 2 Ambar Sosa NP [address] [place] [address] Historical LMR Provider 03/29/17 09/17/22 Grupo Lundberg MD [address] [place] [address] Historical LMR Provider 03/29/17 Vaughn Dukes MD [address] [place] [address] Insurance Assigned Provider 09/12/23 Jey Doll MD [address] [address] Ophthalmology 09/18/22 documented as of this encounter Additional Source Comments The information contained in this document represents components of the legal health record. It is not the complete legal health record.[facility]
--- OUTSIDE RECORDS SUMMARY | 2025-05-08 16:31 | XMS_ITS | Clinical Summary ---
Author Organization [facility] Address [address] [facility] [address] [place] [address] Phone Care Team Providers Care Corporate Representative Name Role Phone Vaughn Dukes MD Unavailable [phone] Vaughn Dukes MD Primary Care Provider [phone] Jey Doll MD Unavailable Allergies Active Allergy [...] eyes managed By Dr. Jey Doll in [place] Active carBAMazepine (TEGRETOL) 200 mg IMMEDIATE release tabletIndicatio ns:Trigeminal neuralgia of left side of face Take 1 tablet (200 mg total) by mouth daily. 90 tablet 2 5 Active Active Problems Problem Noted Date Diagnosed Date Healthcare maintenance 02/24/2024 Overview (02/24/2024): Mammogram 01/29/24 birad 1 ordered by Caterina Hernandez NP Palpitations 02/04/2024 Overview (02/04/2024): Seen in ED [facility] wing- 01/09/24 with c/o palp- HR - [...] So we will set that up at [place] so it is the same center. Also [...] not heard about referral as she leaves [facility] next week for a vacation. Skin lesion [...] knee and referral to Dr. Holt in [place] for further assessment and treatment. Currently no [...] from. Patient recommended to Dr Simmons of [place] she will call and we can then put the referral in., Arthritis Dizziness Overview (11/30/2019): Saw PCP Vaughn Dukes MD on 11/29/2019 for dizziness and recent BP up and down BP was 138/78. TSH checked normal at 2.19. To monitor BP at home. Insomnia Low back pain Overview (11/30/2019): denies current back pain Osteopenia Pulmonary nodule Retinal degeneration Rosacea UTI (urinary tract infection) Encounters Date Type Department Care Team Description 04/19/2025 Documentation [facility] Internal Medicine [address] [facility] [place] [address] Vaughn Dukes MD 02/24/2025 Telephone [facility] Internal Medicine 40 [facility] [place] [place] [address] Vaughn Dukes MD [facility] from Last 3 Months Immunizations Immunization Administration Dates Next Due COVID-19 (Pre-03/30) Pfizer Vaccine, mRNA, PF 03/28/2021,09/20/2020,08/30/2020,08/09 COVID-19 Pfizer Comirnaty Vaccine 12+ 04/01/2021 COVID-19, Unspecified Formulation 04/01/2021 INFLUENZA, SPLIT VIRUS, TRIV ALENT W/ PRESERVATIVE IM 02/17/2012,03/27/2011 Influenza High-Dose Quadriva lent Preservative Free IM 03/24/2023,03/20/2022,04/13/2021 Influenza High-Dose Trivalen t Preservative Free IM 04/18/2025,03/25/2024,04/06/2018,03/12 Influenza Quadrivalent Adjuv anted Preservative Free IM [...] AM EST Office Visit [facility] [place] Internal Medicine 40 [place] [address] Vaughn Dukes MD [address] [place] [address] [email or web address] Health Maintenance Due Date Last Done Comments COLOGUARD 12/08/1995 FIT TEST 12/08/1995 FOBT 12/08/1995 SIGMOIDOSCOPY 12/08/1995 VIRTUAL COLONOSCOPY 12/08/1995 CARBAMAZEPINE (TEGRETOL) LEVEL 11/28/2020 11/29/2019, 06/25/2017 COVID-19 VACCINE (2024-26 season) 2025 03/07/2024, 04/24/2023, 02/28/2022, Additional history [...] SCREENING Completed 08/06/2020 ZOSTER VACCINES Completed 07/10/2021, 08/2020, 04/19/2011 OSTEOPOROSIS SCREENING INITIAL (ONE-TIME) Completed 09/22/2024, 03/25/2024, 07/07/2023, Additional history exists SMOKING STATUS SCREENING (Once After 26 Yrs) Completed 11/25/2024 INFLUENZA VACCINE Completed 04/18/2025, , 03/24/2023, Additional history exists HEPATITIS A VACCINES Aged Out No long [...] Procedure Name Priority Date/Time Associated Diagnosis Comments GLUCOSE Routine 04/18/2025 Pain in both lower legs Family history of diabetes mellitus (DM) Impaired fasting glucose HEMOGLOBIN A1C Routine 04/18/2025 Pain in both lower legs Family history of diabetes mellitus (DM) Impaired fasting glucose HM MAMMOGRAPHY Routine 01/30/2025 8:23 AM EDT HM DEXA SCAN Routine 09/22/2024 [...] Recently Relevant to Health Maintenance Results * Hemoglobin A1c (04/18/2025) Hemoglobin A1c - External 5.2 EXTERNAL NON-INTERFACED REF LAB Blood (Blood) 04/18/2025 Vaughn Dukes MD LAB BLOOD BKR ORDERABLES Edit ed Result - Final Performing Organization Address [facility] de Phone Number EXTERNAL NON-INTERFACED REF LAB * Glucose (04/18/2025) Glucose - External 75 EXTERNAL NON-INTERFACED REF LAB Blood (Blood) 04/18/2025 Vaughn Dukes MD LAB BLOOD BKR ORDERABLES Edit ed Result - Final Performing Organization Address [facility]/State/ZIP Co de Phone Number EXTERNAL NON-INTERFACED REF LAB * HM MAMMOGRAPHY FOR RESULT ENTRY ONLY (01/30/2025 8:23 AM EDT) Historical Provider HEALTH MAINTENANCE Final Result * HM DEXA SCAN (09/22/2024 9:56 AM EDT) Historical Provider HEALTH MAINTENANCE Final Result * (ABNORMAL) Lipid panel (08/23/2024 3:29 PM EDT) HDL 67 mg/dL [facility] Comment: Interpretation <40 mg/dL: Low HDL cholesterol (major risk factor for CHD) Greater than or equal to 60 mg/dL: High HDL cholesterol ( negative risk factor for CHD) HDL - cholesterol is affected by a number of factors, e.g. smoking, excerise, hormones, sex and age. CHOLESTEROL 199 0 - 240 mg/dL [facility] TRIGLYCERIDES 128 30 - 160 mg/dL [facility] LDL 106 50 - 129 mg/dL [facility] Comment: LDL levels in terms of risk for coronary heart disease: <100 mg/dL: Optimal 100-129 mg/dL: Near or above optimal 130-159 mg/dL: Borderline high 160-189 mg/dL: High >190 mg/dL: Very High CARDIAC RISK RATIO 3.0(L) 3.3 - 4.4 C [facility] Blood 08/23/2024 3:29 PM EDT 08/23/2024 3:34 PM EDT Result [facility] Vaughn Dukes MD LAB BLOOD BKR ORDERABLES Norma l Result [address] [address] * COLONOSCOPY FOR RESULT ENTRY ONLY (03/04/2024) Colonoscopy adenoma Historical Provider HEALTH MAINTENANCE Final Result * Hepatitis C antibody, qualitative (08/06/2020 4:04 PM EST) HCV NON-REACTIV E NON-REACTI VE [facility] Blood 08/06/2020 4:04 PM EST 08/06/2020 4:13 PM EST Vaughn Dukes MD LAB BLOOD BKR ORDERABLES Norma l Result Performing Organization Address City/[facility]/ZIP Co de Phone Number [address] [address] * (ABNORMAL) Carbamazepine (Tegretol) level (11/29/2019 2:51 PM EDT) CARBAMAZEPINE 2.4(L) 8.0 - 12.0 ug/mL [facility] Blood 11/29/2019 2:51 PM EDT 11/29/2019 2:57 PM EDT Vaughn Dukes MD LAB BLOOD ORDERABLES Final Re sult Performing Organization Address [facility] Co de Phone Number [address] [address] from Last 3 Months or Most Recently Relevant to Health Maintenance Insurance [place] [id number] [facility] EXTENSION MEDICARE SUPPLEMENT MEDICARE PART A & B [facility] EXTENSION MEDICARE SUPPLEMENT MEDICARE PART A & B [facility] EXTENSION MEDICARE SUPPLEMENT MEDICARE PART A & B [facility] EXTENSION MEDICARE SUPPLEMENT MEDICARE PART A & B Member Subscriber Plan / Payer (Ef fective 2017-Present) Name:Ulysses Sawyer Member ID:[id number] Relation to Subscriber:Self Name:Ulysses Sawyer Subscriber ID:[id number] Payer ID:[id number] Group ID:Not on file Type:Medicare Address: [employer] [address] [employer] EXTENSION MEDICARE SUPPLEMENT MEDICARE PART A & B [employer] EXTENSION MEDICARE SUPPLEMENT MEDICARE PART A & B [facility] MEDICARE SUPPLEMENT MEDICARE PART A & B [facility] EXTENSION MEDICARE SUPPLEMENT MEDICARE PART A & B [facility] EXTENSION MEDICARE SUPPLEMENT Care Teams Corporate Representative Relationship Specialty Start Date End Date Vaughn Dukes MD [address] [place] [address] [email or web address] PCP - General Internal Medicine 08/02/20 Vaughn Dukes MD [address] [place] [address] [email or web address] Insurance Assigned Provider 09/12/23 Jey Doll MD [address] [address] Ophthalmology 09/18/22 Additional Source Comments The information contained in this document represents components of the legal health record. It is not the complete legal health record.[facility]
--- OUTSIDE RECORDS SUMMARY | 2025-05-08 16:31 | XMS_ITS | Encounter Summary ---
Author Organization [facility] Address [address] [place] [address] [place] [address] Phone Care Team Providers Care Overhead Door Technician Name Role Phone Vaughn Dukes MD Primary Care Provider [phone] Vaughn Dukes MD Unavailable [phone] Thomas Saunders MD Unavailable [phone] Charlene Morris MD Unavailable [phone] Dustin Perla MD Unavailable [phone] Christiane Michele EARLY CHILDHOOD TEACHER Unavailable [phone] Ambar Sosa EARLY CHILDHOOD TEACHER Unavailable [phone] Grupo Lundberg MD Unavailable [phone] Vaughn Dukes MD Unavailable [phone] Vaughn Dukes MD Primary Care Provider [phone] Jey Doll MD Unavailable Encounter Details Date Type Department Care Team (Late st Contact Info) Description 08/02/2018 Procedure Pass [facility] Imaging [address] [place] [address] Social History Tobacco Use Types Packs/Day Years [...] Visit [facility] Internal Medicine [address] [place] [address] Vaughn Dukes MD [address] [place] [address] [email or web address] documented as of this encounter Visit Diagnoses Not on filedocumented in this encounter Care Teams Overhead Door Technician Relationship Specialty Start Date End Date Vaughn Dukes MD [address] [place] [address] PCP - General 08/10/15 08/01/20 Vaughn Dukes MD [address] [place] [address] PCP - General Internal Medicine 08/02/20 Vaughn Dukes MD [address] [place] [address] Historical LMR Provider 03/29/17 09/17/22 Thomas Saunders MD [address] [place] [address] [place] [address] [email or web address] Historical LMR Provider 03/29/17 06/15/21 Charlene Morris MD [address] [place] [address] Historical LMR Provider 03/29/17 2 Dustin Perla MD [address] [facility], [address] [place] [address] [email or web address] Historical LMR Provider 03/29/17 06/15/21 Christiane Michele, FAVIO [address] [place] [address] Historical LMR Provider 03/29/17 2 Ambar Sosa NP [address] [place] [address] [email or web address] Historical LMR Provider 03/29/17 09/17/22 Grupo Lundberg MD [address] [place] [address] Historical LMR Provider 03/29/17 Vaughn Dukes MD [address] [place] [address] [email or web address] Insurance Assigned Provider 09/12/23 Jey Doll MD [address] [place] [address] Ophthalmology 09/18/22 documented as of this encounter Additional Source Comments The information contained in this document represents components of the legal health record. It is not the complete legal health record.[facility]
--- OUTSIDE RECORDS SUMMARY | 2025-05-08 16:31 | XMS_ITS | Encounter Summary ---
Author Organization [facility] Address [address] [place] [address] [place] [phone] Phone Care Team Providers Care Risk Prevention Engineer Name Role Phone Vaughn Dukes MD Primary Care Provider [phone] Vaughn Dukes MD Unavailable [phone] Thomas Saunders MD Unavailable [phone] Charlene Morris MD Unavailable [phone] Dustin Perla MD Unavailable [phone] Christiane Michele MACHINE SHOP APPRENTICE Unavailable [phone] Ambar Sosa MACHINE SHOP APPRENTICE Unavailable [phone] Grupo Lundberg MD Unavailable [phone] Vaughn Dukes MD Unavailable [phone] Vaughn Dukes MD Primary Care Provider [phone] Jey Doll MD Unavailable Encounter Details Date Type Department Care Team (Late st Contact Info) Description 08/02/2018 Procedure Pass [facility],Outside Imaging [address] [place] [address] Social History Tobacco Use Types Packs/Day Years [...] Description 07/26/2025 10:00 AM EST Office Visit [facility] Internal Medicine [address] [place] [address] Vaughn Dukes MD [address] [place] [address] [email or web address] documented as of this encounter Visit Diagnoses Not on filedocumented in this encounter Care Teams Risk Prevention Engineer Relationship Specialty Start Date End Date Vaughn Dukes MD [address] [place] [address] PCP - General 08/10/15 08/01/20 Vaughn Dukes MD [address] [place] [address] PCP - General Internal Medicine 08/02/20 Vaughn Dukes MD [address] [place] [address] Historical LMR Provider 03/29/17 09/17/22 Thomas Saunders MD [address] [place] [address] [place] [address] [email or web address] Historical LMR Provider 03/29/17 06/15/21 Charlene Morris MD [address] [place] [address] Historical LMR Provider 03/29/17 2 Dustin Perla MD [address] [facility], [address] [place] [address] [email or web address] Historical LMR Provider 03/29/17 06/15/21 Christiane Michele, FAVIO [address] [place] [address] Historical LMR Provider 03/29/17 2 Ambar Sosa NP [address] [place] [address] [email or web address] Historical LMR Provider 03/29/17 09/17/22 Grupo Lundberg MD [address] [place] [address] Historical LMR Provider 03/29/17 Vaughn Dukes MD [address] [place] [address] [email or web address] Insurance Assigned Provider 09/12/23 Jey Doll MD [address] [place] [address] Ophthalmology 09/18/22 documented as of this encounter Additional Source Comments The information contained in this document represents components of the legal health record. It is not the complete legal health record.[facility]
[2025-05-09 08:16] LABS: HBS Num1 10.14 mIU/mL (0-7.99); HBc Num1 0.11 S/CO (0.00-0.79); HBsAGNum1 0.42 S/CO (0.00-0.99); Hepatitis A Antibody IgM 0.11 Index (0-0.79); Hepatitis B Surface Antigen Negative (Negative); ~HepC Num1 0.15 S/CO (0.00-0.79); ~Hepatitis A Antibody IgM Nonreactive (Nonreactive); ~Hepatitis C Antibody Nonreactive (Nonreactive)
[2025-05-09 09:48] LABS: Anti Nuclear Antibody Screen NEGATIVE (NEGATIVE)
[2025-05-09 12:06] LABS: HBS Num2 10.31 mIU/mL (0-7.99)
[2025-05-09 12:07] LABS: HBS Num3 10.53 mIU/mL (0-7.99); ~Hepatitis B Surface Antibody GRAYZONE (Nonreactive)
== END 2025-05-08 12:54 | disposition home or self-care (01) ==
LOC: HO.LAB 12:53
PROVIDERS: PCP Internal Medicine; Visit Provider Internal Medicine Gastroenterology
DX: R79.89 Other specified abnormal findings of blood chemistry (principal)
CPT/HCPCS: 36415; 80076; 81596; 82728; 83540; 86015; 86038; 86381; 86704; 86706; 86709; 86803; 87340